=== PATIENT | male | born 1955 | race Caucasian/White ===

== ENCOUNTER 2021-11-08 12:17 | Emergency (ER) | payer OTHER, SELFPAY ==
[2021-11-08 12:18] VITALS: BP 126/77; PULSE 102; RESP 14; TEMP 35.7; O2SAT 97; BMI 26.9
--- NOTE | 2021-11-08 12:18 | ED.RN ---
PT NOT COOPERATIVE WITH ANSWERING QUESTIONS IN TRIAGE
--- NOTE | 2021-11-08 12:21 | ED.RN ---
PT RUDE TO FEMALE SCREENER AND THIS RN, VERY PLEASANT WITH MALE VOLUNTEER.
--- NOTE | 2021-11-08 12:57 | EX.ED.DYSGE1 ---
HPI History of Present Illness Chief Complaint: General Illness Informant: patient Onset/Context/Timing Onset: Days Context: Gradual Onset Timing: Intermittent Current Severity: Mild Maximum Severity: Mild Narrative Narrative: 66-year-old male history of multiple myeloma with metastases. He received his last chemotherapy about 3 weeks ago. He is now on a monthly regimen is due to receive chemotherapy again next week. States he had diarrhea intermittently for about a week. Thinks that was dark yesterday. Denies any gross blood. Denies any vomiting nor nausea. No fever. He also has a history of diabetes for which she is on Januvia. He denies any abdominal pain. States has been drinking fluids. Denies any dysuria. Sent in by his oncologist for a work-up. Including a CAT scan. [facility] Medical History (Updated 11/08/21 @ 15:[address] Pedro Altamirano MD) Hypertension Melanoma Home Medications NK 09/23/20 [History Last Taken Unknown] Allergy/AdvReac Type Severity Reaction Status Date / Time No Known Allergies Allergy Unverified 09/23/20 13:22 Social History Smoking Status: Never smoker ROS ROS ED ROS Narrative Diarrhea. Review of Systems ROS Unobtainable: Denies due to encephalopathy Constitutional Constitutional ED: Denies fever(s) Eyes Eyes: Denies change in vision ENT ENT ED: Denies ear pain Cardiovascular Cardiovascular: Denies chest pain Respiratory/Chest Respiratory/Chest: Denies dyspnea Gastrointestinal Gastrointestinal: Reports diarrhea; Denies abdominal pain, nausea or vomiting Genitourinary Genitourinary ED: Denies dysuria Musculoskeletal Musculoskeletal: Denies myalgias Integumentary Denies rash Psychiatric Psychiatric: Denies depression Endocrine Endocrinology: Denies polyuria Allergic/Immunologic Allergic/Immunologic ED: Denies urticaria EXAM Physical Exam Narrative Exam Narrative: 66-year-old male no acute distress. Vital signs are stable. He is afebrile. He does not look septic or toxic. H EENT exam unremarkable. Moist remembers. Neck nontender no lymphadenopathy. Lungs clear to auscultation bilaterally. Heart regular rate and rhythm rate about 95 no murmur. Abdomen soft nontender normal bowel sounds no peritoneal signs. No distention. No obstruction. Patient moving all 4 extremities. Calves are nontender without edema or cords. Neurologically is awake and alert. Moving all 4 extremities. Clinically patient looks well. He does not look dehydrated. Const Vital Signs: 11/08/21 12:18 11/08/21 13:13 11/08/21 14:20 Temperature 96.2 F L Temperature Source Temporal Pulse Rate 102 H 86 Respiratory Rate 14 22 H Respiratory Effort Normal Respiratory Pattern Normal Blood Pressure 126/77 H 128/64 H Blood Pressure Mean 93 85 Pulse Ox 97 98 Oxygen Delivery Method Room Air Room Air Positive well nourished and well developed; Negative for obese, cachectic, contractures or unkempt General Appearance ED: well developed and NAD; Negative for unkempt, cachectic, contractures, cyanotic, diaphoretic or pallor Nutritional Appearance: Negative for cachectic or obese HEENT Reports moist mucous membranes Negative for trauma or tenderness Eyes PERRL and EOMs intact bilaterally General Eye ED: Negative for pale conjunctiva or scleral icterus Neck no lymphadenopathy, supple and no JVD General: Negative for tenderness Chest Wall palpation of chest normal Resp normal respiratory effort and clear to auscultation bilaterally Effort and Inspection: Negative for pain with movement Auscultation: Negative for rales, rhonchi or wheezes Cardio regular rate, regular rhythm, S1 normal heart sound, S2 normal heart sound and no murmurs GI normal to inspection, nondistended, normoactive bowel sounds, non-tender, non-distended and no masses Inspection: Negative for abdominal distention Auscultation: normoactive bowel sounds Palpation: soft; Negative for tender, guarding or rebound tenderness present Back/Spine no CVA tenderness General Back: Negative for CVA tenderness Cervical Spine: Negative for cervical spine tenderness Thoracic Spine / Upper Back: Negative for thoracic spinal tenderness Extremity normal to inspection General Extremety ED: Negative for edema or tenderness General Extremity: Negative for edema Neuro oriented x3 Sensorium / Orientation: alert; Negative for orientation impaired, lethargic or stuporous Motor Exam: strength 5/5 throughout Psych mental status grossly normal Appearance: Negative for unkempt Attitude: No agitated Mood & Affect: Negative for depressed or tearful Skin no rashes or lesions noted and no wounds General Skin Exam: Negative for jaundice or pallor MDM MDM MDM Narrative Medical decision making narrative: 60-year-old male with multiple myeloma undergoing chemotherapy with diarrhea. Clinically looks well. Screening labs are being obtained. CAT scan be obtained per his oncologist request. He called them prior to the patient's arrival. C. difficile culture will be obtained if the patient has a bowel movement here. Repeat exam patient is doing well at 3:10 PM. I did speak to Dr. Ramses Herrera his oncologist. He will call patient and a prescription for prednisone. He will be given a dose of Solu-Medrol IV here. He will be discharged home. Dr. Herrera will follow him up as an outpatient. Lab Data Attestation: I reviewed the patient's lab results. Lab results narrative: CBC shows a white count of 7. H&H 12.9 and 38. Platelets 187. Electrolytes potassium of 3.3. Gap of 6 BUN of 21 creatinine 1.91. His baseline creatinine clean and creatinine is around 1.6 per his oncologist. Glucose 173. Liver enzymes unremarkable. CAT scan showed some mild rectal thickening. Also some mild colitis. Labs: Laboratory Results - last 24 hr 11/08/21 11/08/21 13:11 13:11 WBC 7.1 RBC 4.32 L Hgb 12.9 L Hct 38.3 L MCV 88.7 MCH 29.9 MCHC 33.7 RDW Std Deviation 42.1 RDW Coeff of Samuel 12.9 Plt Count 187 MPV 10.2 Immature Gran % (Auto) 2.000 H Neut % (Auto) 59.9 Lymph % (Auto) 21.4 [place]ath % (Auto) 13.2 H Eos % (Auto) 2.8 Baso % (Auto) 0.7 Absolute Neuts (auto) 4.2 Absolute Lymphs (auto) 1.51 Nucleated RBC % 0 Differential Comment Platelet Estimate ADEQUATE RBC Morphology NORM C+C Sodium 139 Potassium 3.3 L Chloride 102 Carbon Dioxide 31.0 Anion Gap 6 BUN 21 H Creatinine 1.91 H Estim Creat Clear Calc 35.57 Est GFR (MDRD) Af Amer 46 L Est GFR (MDRD) Non-Af 38 L BUN/Creatinine Ratio 11.0 Glucose 173 H Calcium 9.6 Total Bilirubin 0.80 AST 19 ALT 36 Alkaline Phosphatase 56 Total Protein 6.5 Albumin 2.7 L Globulin 3.8 Albumin/Globulin Ratio 0.7 L Radiography Diagnostic Testing: Clinical Impression(s) from Imaging Studies Abdomen/Pelvis CT 11/08/21 13:52 IMPRESSION: Asymmetrical thickening along the right lateral rectal wall with moderate amount of distal colonic fecal material. Thickening of the colon suggestive of colitis. Small cyst in the right lobe of the liver. Electronically Signed: Gerald Fuller MD at 14:15 EDT , Discharge Plan Triage Chief Complaint: General Illness ED Provider: Pedro Altamirano Dx/Rx/DC Orders Clinical Impression: Diarrhea, Colitis Instructions: ED Diarrhea, Unknown Cause Prescriptions: No Action NK RF: 0 Primary Care Provider: Care Physician,No Primary Referrals: Ramses Herrera, [STAFF PHYSICIAN] - As soon as possible Care Physician,No Primary [Primary Care Provider] - Activity Restrictions/Additional Instructions: Plenty of fluids and rest. Call and follow-up with Dr. Ramses Herrera. He is going to call you new prescription for steroids which can start tomorrow. We gave you an IV dose of steroids here prior to you being discharged. Dr. Herrera will get other follow-up set up for you as needed. Disposition Disposition: Home, Self Care
[2021-11-08] MEDS: 0.9% Normal Saline 1,000 ML 1000 ML IV (13:17)
[2021-11-08 13:29] LABS: Absolute Lymphocyte Count 1.51 X10^3/uL (0.83-4.51); Absolute Neutrophil Count 4.2 X10^3/uL (2.0-7.7); Basophil# 0.05 X10^3/uL; Basophil% 0.7 % (0-1); Eosinophils% 2.8 % (0-5); Hematocrit 38.3 % (40-54); Hemoglobin 12.9 g/dL (13.0-16.5); Lymphocyte # 1.51 X10^3/ul (0.83-4.51); Lymphocyte % 21.4 % (19-41); Mean Corp Hgb Conc 33.7 g/dL (32-36); Mean Corpuscular Hgb 29.9 pg (27.0-32.0); Mean Corpuscular Volume 88.7 fL (80-94); Mean Platelet Vol. 10.2 fl (6.2-12.0); Monocyte# 0.93 X10^3/uL; Monocyte% 13.2 % (0-10); NRBC Flagged by Analyzer 0 % (0-5); Neutrophil # 4.22 X10^3/uL (2.7-7.7); Neutrophil % 59.9 % (47-70); POSITIVE MORPHOLOGY YES; Platelet Count 187 K/mm3 (150-450); RBC Distribution Width CV 12.9 % (11.6-14.6); RBC Distribution Width SD 42.1 fl (35.1-43.9); Red Blood Count 4.32 M/mm3 (4.6-6.2); White Blood Count 7.1 K/mm3 (4.4-11.0)
[2021-11-08 13:34] LABS: Differential Indicated SCAN CRITERIA MET
[2021-11-08 13:45] LABS: ALB/GLOB Ratio 0.7 RATIO (0.9-2.4); AST(SGOT) 19 U/L (15-37); Alanine Aminotransfer ALT/SGPT 36 U/L (16-61); Albumin, Serum 2.7 g/dL (3.2-5.0); Alkaline Phosphatase 56 U/L (45-117); Anion Gap 6 (5-15); BUN 21 mg/dL (7-18); Calcium,Total 9.6 mg/dL (8.5-10.1); Chloride 102 mmol/L (98-107); Creatinine, Serum 1.91 mg/dL (0.70-1.30); EST Glomerular Filtration Rate 38 mL/min (>60); Est Glom Filt Rate - Afr Amer 46 mL/min (>60); Estimated Creatinine Clearance 35.57 ml/min; Globulin 3.8 g/dL (2.2-4.2); Glucose 173 mg/dL (74-106); Potassium 3.3 mmol/L (3.5-5.1); Protein, Total 6.5 g/dL (6.4-8.2); Sodium Level 139 mmol/L (136-145)
--- NOTE | 2021-11-08 13:52 | CT_ITS ---
STUDY: CT ABDOMEN AND PELVIS WITH CONTRAST REASON FOR EXAM: Male, 66 years old. Cancer with mets RADIATION DOSAGE (If Supplied By Facility): CTDIvol = ( 12.93 ) mGy, DLP = ( 801.28 ) mGycm TECHNIQUE: Transaxial images were obtained from the dome of the diaphragm to the symphysis pubis without oral contrast. IV 100mL Isovue-300 was administered. Sagittal and coronal images were reconstructed. Individualized dose optimization techniques were used for this CT. COMPARISON: None. FINDINGS: The visualized lung bases are unremarkable. The visualized portions of the heart are within normal limits. There is a 3.6 mm cyst in the region of the gallbladder fossa. The gallbladder is contracted. Normal spleen. Normal pancreas. Normal bilateral adrenal glands. Normal right kidney. Normal left kidney. There is a small hiatal hernia. Normal small intestine. Moderate amount of fecal material is seen in the distal colon. There is asymmetrical thickening of the wall of the rectum with diffuse thickening along the right lateral wall. There is evidence of circumferential thickening of the ascending colon, transverse colon and descending colon. Colitis should be removed. The appendix is visualized and appears normal. There is diffuse atherosclerotic calcification of the abdominal aorta and its major visceral branches, without a demonstrated aneurysm. Normal inferior vena cava. Normal retroperitoneum. Normal urinary bladder. Normal abdominal wall. There are diffuse degenerative changes of the visualized lumbar spine. CT/Abdomen/Pelvis W IV Cont ONLY IMPRESSION: Asymmetrical thickening along the right lateral rectal wall with moderate amount of distal colonic fecal material. Thickening of the colon suggestive of colitis. Small cyst in the right lobe of the liver. Electronically Signed: Gerald Fuller MD at 14:15 EDT ,
[2021-11-08 14:02] LABS: Platelet Estimate ADEQUATE (ADEQ); Red Cell Morphology NORM C+C NORMAL (NORM C&C)
[2021-11-08 14:20] VITALS: BP 128/64; PULSE 86; RESP 22; O2SAT 98
--- NOTE | 2021-11-08 14:23 | CM.ED ---
Addendum entered by Dominique Alejo 11/08/21 17:53: When BETTY met with patient to provide resources patient was rude and dismissive. He scoffed when this commercial loan underwriter offered resources and SW laid it on his bed as he did not take it. Dominique ALMANZAR Original Note: BETTY Note Referral Source: Case Find Referral Reason: No Primary Care Physician (PCP) SW reviewed chart and noted that patient has no PCP. SW provided patient with list of [facility] and [facility] Physician List for reference. No other issues or concerns voiced at this time. SW remains available for any additional needs. Plan: Provided patient with PCP information Dominique ALMANZAR
[2021-11-08] MEDS: MethylPREDNISolone 125 MG/2 ML Vial 60 MG IV (15:44)
[2021-11-08 15:46] VITALS: BP 119/61; PULSE 84; RESP 16
== END 2021-11-08 15:47 | disposition home or self-care (01) ==
PROVIDERS: Emergency Provider Emergency Medicine; Visit Provider Emergency Medicine
DX: K52.9 Noninfective gastroenteritis and colitis, unspecified (principal); C79.9 Secondary malignant neoplasm of unspecified site; C90.00 Multiple myeloma not having achieved remission; Z79.899 Other long term (current) drug therapy
CPT/HCPCS: 74177; 80053; 85025; 96361; 96374; 99283; J7030; Q9967; A4216

== ENCOUNTER 2022-09-17 10:12 | Emergency (ER) | payer MEDICARE, OTHER, SELFPAY ==
[2022-09-17 10:13] VITALS: BP 126/80; PULSE 101; RESP 14; TEMP 36.1; O2SAT 100; BMI 22.6
--- NOTE | 2022-09-17 10:47 | RAD_ITS ---
HISTORY: weakness. TECHNIQUE: XR Chest 2 Views. COMPARISON: None. FINDINGS: CARDIOMEDIASTINAL BORDERS: Cardiac silhouette within normal limits in size. Mediastinal contour unremarkable. LUNGS: Radiographically clear. 9 mm anterior chest wall nodule projected over the right midlung. PLEURA: No pleural effusion or pneumothorax seen. OSSEOUS STRUCTURES: Degenerative change and mild scoliosis. Old right rib fractures. RAD/Chest PA and Lateral IMPRESSION: No acute cardiopulmonary process identified. Small anterior chest wall nodule. Electronically Signed: Tabitha Jesus MD at 12:42 EST ,
--- NOTE | 2022-09-17 10:47 | EKG12_ITS ---
Test Reason : WEAKNESS Blood Pressure : / mmHG Vent. Rate : 078 BPM Atrial Rate : 078 BPM P-R Int : 146 ms QRS Dur : 124 ms QT Int : 414 ms P-R-T Axes : 039 024 030 degrees QTc Int : 471 ms Normal sinus rhythm Right bundle branch block Abnormal ECG Confirmed by GUICHO WHITEHEAD, HERNANDO ([id number]), videotape editor OSMANY ALVARADO ([id number]) on 09/19/2022 11:15:03 AM Referred By: Confirmed By:HERNANDO LINDO MD
--- NOTE | 2022-09-17 10:47 | CT_ITS ---
HISTORY: ataxia left, hx melanoma. TECHNIQUE: Multiple axial images were obtained of the head before and after the intravenous administration of 15 cc Isovue-370. A radiation dose optimization technique was used for this scan. 282 images. COMPARISON: None. FINDINGS: BRAIN PARENCHYMA: Multiple foci and zones of low attenuation in the bilateral cerebral white matter compatible with chronic small vessel ischemic gliosis. No enhancing mass. Old lacunar infarcts in the bilateral basal ganglia. No acute intra-axial hemorrhage identified. CSF SPACES: Mild generalized volume loss. No midline shift or other significant mass effect. No acute extra-axial hemorrhage seen. OTHER: Intact calvarium. Fluid in the bilateral mastoid air cells. Bilateral maxillary sinus mucous retention cysts. Unremarkable orbits. CT/Brain/Head W/WO Contrast IMPRESSION: No acute intracranial process or enhancing intracranial mass identified. Chronic involutional and white matter changes. Old basal ganglia lacunar infarcts. Electronically Signed: Tabitha Jesus MD at 12:37 EST ,
--- NOTE | 2022-09-17 10:50 | EDS_ITS ---
HPI History of Present Illness Chief Complaint: Weakness Informant: patient Onset/Context/Timing Onset: - (this past week) Context: Gradual Onset Timing: Continuous Narrative Narrative: Patient is a poor historian who presents for feeling weak and having a poor appetite, along with pain in both calves and thighs as well as tingling in his left hand. These latter symptoms are new and have been going on this past week and he states also he has been wobbly and off balance with walking without any dizziness, headache, or focal weakness. He has not fallen or injured himself. He has had no fevers or chills. When asked if he has a cough he states that he has not been coughing this past week suggesting that other times he is coughing. He states the poor appetite has been for 1-2 years since he initiated treatment for melanoma, he states he is in remission right now, he states he has seen his oncologist regarding his poor appetite, he was put on some medication that was supposed to help with his appetite, but it is not helping, he states he has had no conversations about a feeding tube. He states he has lost over 40 pounds. He does not think he is drinking fluids very well either, and he thinks maybe he is dehydrated. The pain in his calves and thighs is without walking/exertion, he states it is sore all of the time. He denies any swelling. No history of blood clots. [facility] Medical History Hypertension Melanoma Home Medications tramadol 50 mg tablet 50 mg PO Q6H PRN pain 3 days #12 tabs 09/17/22 [Rx Last Taken Unknown] Allergy/AdvReac Type Severity Reaction Status Date / Time No Known Allergies Allergy Verified 09/17/22 10:13 Social History Smoking Status: Never smoker ROS [facility] ED Constitutional Constitutional ED: Reports malaise and weakness; Denies chills or fever(s) Eyes Eyes: Denies change in vision or diplopia ENT ENT ED: Denies rhinorrhea or sore throat Cardiovascular Cardiovascular: Denies chest pain or palpitations Respiratory/Chest Respiratory/Chest: Denies cough or dyspnea Gastrointestinal Gastrointestinal: Denies abdominal pain, diarrhea, nausea or vomiting Genitourinary Genitourinary ED: Denies dysuria or hematuria Musculoskeletal Musculoskeletal: Reports as per HPI and extremity pain; Denies back pain or neck pain Integumentary Denies abscess or rash Neurologic Neurologic: Reports as per HPI, abnormal gait and paresthesias LUE (hand. no other areas of paresthesias.); Denies headache(s) or weakness Psychiatric Psychiatric: Denies anxiety or suicidal thoughts EXAM Physical Exam Const Vital Signs: 09/17/22 10:13 09/17/22 11:12 09/17/22 12:48 Temperature 97 F L Temperature Source Temporal Pulse Rate 101 H 86 Respiratory Rate 14 16 Respiratory Effort Normal Respiratory Pattern Normal Blood Pressure 126/80 H 156/88 H Blood Pressure Mean 95 110 Pulse Ox 100 99 Oxygen Delivery Method Room Air Room Air 09/17/22 13:16 Temperature Temperature Source Pulse Rate 91 Respiratory Rate 23 H Respiratory Effort Respiratory Pattern Blood Pressure 157/92 H Blood Pressure Mean 113 Pulse Ox 99 Oxygen Delivery Method Room Air Positive well nourished and well developed General Appearance ED: well developed and NAD HEENT Reports moist mucous membranes normocephalic and atraumatic Eyes PERRL and EOMs intact bilaterally Neck full ROM and supple Resp normal respiratory effort and clear to auscultation bilaterally Cardio regular rate, regular rhythm and no murmurs GI non-tender and non-distended Auscultation: normoactive bowel sounds Palpation: soft Back/Spine no CVA tenderness General Back: other FROM Extremity normal to inspection General Extremety ED: Negative for edema, pulses abnormal or tenderness General Extremity: Negative for edema or pulses abnormal Neuro oriented x3 and CN's II-XII intact bilaterally Neuro Narrative: Subjective decreased sensation left hand, but sensation grossly intact there, and normal everywhere else. He has ataxia with [id number] on the left although his strength is normal. He has mild ataxia of the left leg with [id number] but the strength is normal. Right upper and lower extremities [id number]-[id number] and [id number] normal. Speech normal. Sensorium / Orientation: awake and alert Motor Exam: strength 5/5 throughout Psych mental status grossly normal Skin no rashes or lesions noted and no wounds NIHSS NIHSS Initial: 1a Level of Consciousness: 0 1b LOC Questions (Score 2 if aphasic/stupor): 0 1c LOC Commands (Only score 1st attempt): 0 2 Best Gaze (If aphasic, use reflexive mvmts.): 0 3 Visual: 0 4 Facial Palsy: 0 5 Motor Arm Right (UN = amputation/fusion): 0 5 Motor Arm Left: 0 6 Motor Leg Right: 0 6 Motor Leg Left: 0 7 Limb ataxia (Only + if out of proportion): 2 8 Sensory (Aphasia/stupor=0 or 1, coma=2): 1 9 Best Language: 0 10 Dysarthria (mute, coma=2, intubated=UN): 0 11 Extinction and Inattention (only scored if +): 0 Total Score: 3 MDM MDM MDM Narrative Medical decision making narrative: I obtain basic labs in addition to to a CT of the head with and without contrast, I reviewed the images and see nothing acute or emergent. Radiology in agreement. My interpretation of the CT agrees with that of the radiologist. He does have some old lacunar infarcts unknown if those are related to any of this but they are in the basal ganglia and less likely to be causing ataxia in my judgment. His labs show mild renal insufficiency that is better than the previous reading that we had, he is hyperglycemic. He does not have diabetes that he knows of. I am assuming this is a fasting glucose, I confirmed that with him, he had an ice cream sandwich at 2 AM but nothing to eat or drink since then, so this blood work was obtained more than 8 hours after that. He will need to follow-up with his medical doctor for this but I see no emergent cause of his ataxia or indication for admission at this time. We did obtain a urinalysis, it is normal and shows no evidence of glycosuria or dehydration. He was given a small dose of Toradol for the achy pains in his legs which seem muscular. His cardiac work-up is unremarkable. Close a patient follow-up advrafael sed. After all of this, at discharge, the patient states that he is more interested in getting pain medication for his legs. He told the nurse that he basically thought that he was here to just get a shot of pain medication for his legs and then he could go home, he certainly discussed none of this with me. I will prescribe him some tramadol. He had stated earlier that he wanted some Tylenol because he was taking that at home, I give him an injection of Toradol so that if he needed Tylenol when he got home he could still take it. Lab Data Attestation: I reviewed the patient's lab results. Labs: Laboratory Results - last 24 hr 09/17/22 09/17/22 09/17/22 11:17 11:17 13:25 WBC 8.8 RBC 4.49 L Hgb 13.6 Hct 39.5 L MCV 88.0 MCH 30.3 MCHC 34.4 RDW Std Deviation 46.4 H RDW Coeff of Samuel 14.4 Plt Count 163 MPV 10.5 Immature Gran % (Auto) 0.800 Neut % (Auto) 71.7 H Lymph % (Auto) 16.7 L [place] % (Auto) 9.0 Eos % (Auto) 1.3 Baso % (Auto) 0.5 Absolute Neuts (auto) 6.3 Absolute Lymphs (auto) 1.47 Nucleated RBC % 0 Sodium 141 Potassium 3.9 Chloride 105 Carbon Dioxide 29.0 Anion Gap 7 BUN 18 Creatinine 1.38 H Estim Creat Clear Calc 48.86 Est GFR (MDRD) Af Amer 66 Est GFR (MDRD) Non-Af 55 L BUN/Creatinine Ratio 13.0 Glucose 211 H Calcium 9.1 Troponin I High Sens 6 Urine Color Yellow Urine Clarity Clear Urine pH 6.5 Ur Specific [place] 1.010 Urine Protein 15 H Urine Glucose (UA) Normal Urine Ketones 5 H Urine Occult Blood Negative Urine Nitrite Negative Urine Bilirubin Negative Urine Urobilinogen Normal Ur Leukocyte Esterase Negative Urine RBC 0 SEEN Urine WBC 0 SEEN Ur Squamous Epith Cells 0 SEEN Urine Bacteria 0 SEEN Urine Mucus 0 SEEN Radiography Diagnostic Testing: Clinical Impression(s) from Imaging Studies Brain CT 09/17/22 10:47 IMPRESSION: No acute intracranial process or enhancing intracranial mass identified. Chronic involutional and white matter changes. Old basal ganglia lacunar infarcts. Electronically Signed: Tabitha Jesus MD at 12:37 EST , Chest X-Ray 09/17/22 10:47 IMPRESSION: No acute cardiopulmonary process identified. Small anterior chest wall nodule. Electronically Signed: Tabitha Jesus MD at 12:42 EST , Rhythm Strip Rhythm Strip: Sinus Rhythm Rate: 75 Ectopy: None EKG Initial EKG: Attestation: I personally reviewed and interpreted this EKG as follows: Interpretation: Sinus Rhythm, No Acute Injury Pattern and RBBB Prior: No Prior Discharge Plan Triage Chief Complaint: Weakness ED Provider: Juan Jain Dx/Rx/DC Orders Clinical Impression: Generalized weakness, Decreased appetite, Fasting hyperglycemia, Bilateral leg pain Instructions: ED Weakness (Uncertain Cause), ED Hyperglycemia New Susp Diabetes Prescriptions: New tramadol 50 MG tablet 50 mg PO Q6H PRN (Reason: pain) 3 Days Qty: 12 0RF Primary Care Provider: Eleazar Siddiqi Referrals: Eleazar Siddiqi, PA [Primary Care Provider] - As soon as possible Disposition Disposition: Home, Self Care Stroke Documentation Questions Stroke Team Activated: No (due to timing of sx mult days) Was Patient considered for Endovascular Intervention?: No-CTA not indicated
--- NOTE | 2022-09-17 11:13 | NURSING ---
NO OLD EKGS
[2022-09-17 11:28] LABS: Absolute Lymphocyte Count 1.47 X10^3/uL (0.83-4.51); Absolute Neutrophil Count 6.3 X10^3/uL (2.0-7.7); Basophil# 0.04 X10^3/uL; Basophil% 0.5 % (0-1); Eosinophil# 0.11 X10^3/uL; Eosinophils% 1.3 % (0-5); Hematocrit 39.5 % (40-54); Hemoglobin 13.6 g/dL (13.0-16.5); Lymphocyte # 1.47 X10^3/ul (0.83-4.51); Lymphocyte % 16.7 % (19-41); Mean Corp Hgb Conc 34.4 g/dL (32-36); Mean Corpuscular Hgb 30.3 pg (27.0-32.0); Mean Platelet Vol. 10.5 fl (6.2-12.0); Monocyte# 0.79 X10^3/uL; NRBC Flagged by Analyzer 0 % (0-5); Neutrophil # 6.32 X10^3/uL (2.7-7.7); Neutrophil % 71.7 % (47-70); Platelet Count 163 K/mm3 (150-450); RBC Distribution Width CV 14.4 % (11.6-14.6); RBC Distribution Width SD 46.4 fl (35.1-43.9); Red Blood Count 4.49 M/mm3 (4.6-6.2); White Blood Count 8.8 K/mm3 (4.4-11.0)
[2022-09-17 11:41] LABS: Anion Gap 7 (5-15); BUN 18 mg/dL (7-18); Calcium,Total 9.1 mg/dL (8.5-10.1); Chloride 105 mmol/L (98-107); Creatinine, Serum 1.38 mg/dL (0.70-1.30); EST Glomerular Filtration Rate 55 mL/min (>60); Est Glom Filt Rate - Afr Amer 66 mL/min (>60); Estimated Creatinine Clearance 48.86 ml/min; Glucose 211 mg/dL (74-106); Potassium 3.9 mmol/L (3.5-5.1); Sodium Level 141 mmol/L (136-145); Troponin-I HS 6 pg/mL (3.0-78.0)
[2022-09-17] MEDS: 0.9% Normal Saline 1,000 ML 250 ML IV (11:44)
[2022-09-17 12:48] VITALS: BP 156/88; PULSE 86; RESP 16; O2SAT 99
[2022-09-17] MEDS: Ketorolac 15 MG/ML Vial IV (13:14)
[2022-09-17 13:16] VITALS: BP 157/92; PULSE 91; RESP 23; O2SAT 99
[2022-09-17 13:32] LABS: Bacteria 0 SEEN /hpf (None Seen); Mucous, Urine 0 SEEN /hpf (<or=2+); Red Blood Cells-Urine 0 SEEN /hpf (0-5); Squamous Epithelial Cells - UA 0 SEEN /hpf (0-5); White Blood Cells 0 SEEN /hpf (0-5)
[2022-09-17 13:34] LABS: Color, Urine Yellow (Yellow); Glucose, Dipstick Normal (Normal); Ketone-Dipstick 5 mg/dl (Negative); Leukocyte Esterase-Dipstick Negative /ul (Negative); Nitrite-Dipstick Negative (Negative); Occult Blood-Urine Negative /ul (Negative); Protein-Dipstick 15 mg/dl (Negative); Urine Bilirubin Dipstick Negative (Negative); Urine Clarity Clear (Clear); Urine Urobilinogen Normal (Normal); Urine pH 6.5 (5.0 - 8.0)
[2022-09-17 14:34] VITALS: BP 154/84; PULSE 82; RESP 18; O2SAT 96
== END 2022-09-17 14:38 | disposition home or self-care (01) ==
PROVIDERS: Emergency Provider Emergency Medicine; PCP Physician Assistant; Visit Provider Emergency Medicine
DX: R53.1 Weakness (principal); I10 Essential (primary) hypertension; N28.9 Disorder of kidney and ureter, unspecified; M79.661 Pain in right lower leg; M79.662 Pain in left lower leg; R20.2 Paresthesia of skin; Z20.822 Contact with and (suspected) exposure to COVID-19
CPT/HCPCS: 70470; 71046; 80048; 81001; 84484; 85025; 87428; 93005; 96361; 96374; 99285; J7030; Q9967; A4216

== ENCOUNTER 2023-11-20 13:50 | Emergency (ER) | payer MEDICARE, OTHER, SELFPAY ==
[2023-11-20 13:50] VITALS: BP 133/74; PULSE 103; RESP 19; TEMP 36.6; O2SAT 99; BMI 22.8
--- NOTE | 2023-11-20 14:18 | EX.ED.GUMALE ---
HPI History of Present Illness Chief Complaint: Complaint Detail of Chief Complaint: Gross hematuria today. Informant: patient and spouse/S.O. Pain Onset: Today Context: Gradual Onset Current Severity: Mild Maximum Severity: Mild Narrative Narrative: 68-year-old male history of I believe metastatic melanoma for which she sees Dr. Ramses Herrera and [facility]. States he is having trouble emptying his bladder and today had gross hematuria. Denies any dysuria. No prior prostate or bladder surgeries. He is not on any blood thinners. Prior similar symptoms: No Recent Illness/Hospitalization: No PFSH PFSH Medical History Hypertension Melanoma Home Medications tramadol 50 mg tablet 50 mg PO Q6H PRN pain 3 days #12 tabs 09/17/22 [Rx Last Taken Unknown] ciprofloxacin HCl 500 mg tablet (Cipro) 500 mg PO BID 7 days #14 tabs 11/20/23 [Rx Last Taken Unknown] Allergy/AdvReac Type Severity Reaction Status Date / Time No Known Allergies Allergy Verified 09/17/22 10:13 Social History Smoking Status: Never smoker ROS ROS ED ROS Narrative Hematuria. [place] bladder. Review of Systems ROS Unobtainable: Denies due to encephalopathy Constitutional Constitutional ED: Denies chills or fever(s) Eyes Eyes: Denies blurry vision ENT ENT ED: Denies ear pain Cardiovascular Cardiovascular: Denies chest pain Respiratory/Chest Respiratory/Chest: Denies cough or dyspnea Gastrointestinal Gastrointestinal: Denies abdominal pain, constipation, diarrhea, melena, nausea or vomiting Genitourinary Genitourinary ED: Reports hematuria; Denies dysuria Musculoskeletal Musculoskeletal: Denies arthralgias or back pain Integumentary Denies rash Neurologic Neurologic: Denies headache(s) Psychiatric Psychiatric: Denies anxiety, depression or suicidal ideation Endocrine Endocrinology: Denies polydipsia, polyphagia or polyuria Hematologic/Lymphatic Hematologic/Lymphatic: Denies easy bleeding, easy bruising or lymphadenopathy Allergic/Immunologic Allergic/Immunologic ED: Denies mouth swelling or tongue swelling EXAM Physical Exam Narrative Exam Narrative: Well-appearing 16-year-old male. Vital signs stable afebrile. Pulse ox 9 9% on room air no signs hypoxia. H EENT exam unremarkable. Moist weeks membranes. Neck nontender. Lungs clear to auscultation bilaterally. Heart regular rhythm rate about 100 no murmur. Abdomen is soft, nontender, nondistended normal bowel sounds no peritoneal signs. I do not feel distended bladder. Moving all 4 extremities. Nontender no edema. He does have lesions on his skin which may be metastatic melanoma. Neurologically is awake and alert with no focal motor deficits. Const Vital Signs: 11/20/23 13:50 11/20/23 17:50 Temperature 97.8 F 98.2 F Temperature Source Temporal Oral Pulse Rate 103 H 68 Respiratory Rate 19 H 16 Blood Pressure 133/74 H 142/86 H Blood Pressure Mean 93 104 Pulse Ox 99 97 Oxygen Delivery Method Room Air Room Air Positive well nourished and well developed; Negative for obese, cachectic, contractures or unkempt General Appearance ED: well developed and NAD; Negative for unkempt, cachectic, contractures or pallor Nutritional Appearance: Negative for cachectic or obese HEENT Reports moist mucous membranes; Denies dry mucous membranes normocephalic and atraumatic; Negative for trauma or tenderness Mouth ED: No dry mucous membranes Mouth: No dry mucous membranes Eyes PERRL and EOMs intact bilaterally General Eye ED: Negative for pale conjunctiva or scleral icterus Neck no lymphadenopathy, supple and no JVD General: Negative for tenderness Resp normal respiratory effort and clear to auscultation bilaterally Effort and Inspection: Negative for retractions Auscultation: Negative for rales, rhonchi, wheezes or diminished lung sounds Cardio regular rate, regular rhythm, S1 normal heart sound, S2 normal heart sound and no murmurs Rate: Negative for bradycardia or tachycardic Rhythm: Negative for abnormal rhythm Heart Sounds: Negative for other GI non-tender, non-distended and no masses Inspection: Negative for abdominal distention Auscultation: normoactive bowel sounds Palpation: soft; Negative for tender or guarding no CVA tenderness Bladder / Kidney Exam: No CVA tenderness Groin / Perineum Exam: Negative for edema or lesions Back/Spine no CVA tenderness General Back: Negative for CVA tenderness Cervical Spine: Negative for cervical spine tenderness Thoracic Spine / Upper Back: Negative for thoracic spinal tenderness Lumbar Spine / Lower Back: Negative for lumbar spinal tenderness Extremity Negative for normal to inspection Extremity Narrative: Skin lesions on his left arm and left leg may be metastatic melanoma. General Extremety ED: Negative for edema or pulses abnormal General Extremity: Negative for edema or pulses abnormal Neuro oriented x3, CN's II-XII intact bilaterally, moves all extremities and no focal motor deficits Sensorium / Orientation: alert, oriented to person, oriented to place and oriented to time; Negative for orientation impaired, confused, lethargic or stuporous Motor Exam: strength 5/5 throughout Psych mental status grossly normal Appearance: Negative for unkempt Attitude: No agitated Mood & Affect: Negative for depressed, anxious or tearful Thought Process: normal thought process Skin Skin Narrative: Skin lesions. General Skin Exam: Negative for jaundice or pallor Lesions: No no lesions Rashes: no rashes Trauma: Negative for abrasion or laceration MDM MDM MDM Narrative Medical decision making narrative: 68-year-old male complaining of hematuria today and trouble urinating recently physical he is emptying his bladder. No prior history of bladder or prostate surgery. Screening labs to be obtained this may be gross hematuria from bladder lesions could also be secondary to infection. UA, labs and bladder scan will be obtained. Patient's had this before. He is on no blood thinners and currently on no meds. He may or may not have an infection. There is white cells but no nitrates or bacteria. Culture was sent. Will be started on Cipro 500 twice daily for 1 week. First dose given here. He has a urologist he sees the [facility] he has appointment to see them on Monday. He knows if he is passing large clots or unable to urinate he needs to return to have the Ramírez catheter placed to have this washed out. He does not want that at this time and does not really need it at this time. History & Record Review Discussion w/independent historian: Patient Additional record(s) reviewed:: Prior inpatient record, Prior outpatient record, Prior ED visit and Prior labs Lab Data Attestation: I reviewed the patient's lab results. Lab results narrative: CBC is a white count of 5. H&H of 13.1 and 40. Platelets 172. These were all consistent with his baseline. Electrolytes show gap of 5. BUN of 23 creatinine 1.37. Glucose 178. Again consistent with his baseline and better. Bladder scan was around 144. Patient is able to urinate. He is not passing large clots just blood-tinged urine. He does not want a Ramírez catheter. Labs: Laboratory Results - last 24 hr 11/20/23 11/20/23 14:30 16:20 WBC 5.6 RBC 4.55 L Hgb 13.1 Hct 40.5 MCV 89.0 MCH 28.8 MCHC 32.3 RDW Std Deviation 41.8 RDW Coeff of Samuel 12.7 Plt Count 172 MPV 11.4 Immature Gran % (Auto) 0.400 Neut % (Auto) 49.5 Lymph % (Auto) 36.8 [place] % (Auto) 10.6 H Eos % (Auto) 1.8 Baso % (Auto) 0.9 Absolute Neuts (auto) 2.8 Absolute Lymphs (auto) 2.04 Nucleated RBC % 0 Sodium 139 Potassium 4.1 Chloride 104 Carbon Dioxide 30.0 Anion Gap 5 BUN 23 H Creatinine 1.37 H Estim Creat Clear Calc 48.25 Est GFR (MDRD) Af Amer 66 Est GFR (MDRD) Non-Af 55 L BUN/Creatinine Ratio 16.8 Glucose 178 H Calcium 9.4 Urine Color SEE COMMENT BELOW Urine Clarity Sl Cldy Urine pH 6.0 Ur Specific [place] 1.015 Urine Protein 100 H Urine Glucose (UA) Normal Urine Ketones Negative Urine Occult Blood 250 H Urine Nitrite Negative Urine Bilirubin Negative Urine Urobilinogen Normal Ur Leukocyte Esterase 25 H Urine RBC 25-50 SEEN Urine WBC 5-10 SEEN Ur Squamous Epith Cells 0-5 SEEN Urine Bacteria 0 SEEN Urine Mucus 0 SEEN Discharge Plan Triage Chief Complaint: Complaint ED Provider: Pedro Altamirano Dx/Rx/DC Orders Clinical Impression: Gross hematuria, Hx of melanoma of skin Instructions: ED Hematuria Prescriptions: New ciprofloxacin HCl [Cipro] 500 mg tablet 500 mg PO BID 7 Days Qty: 14 0RF No Action tramadol 50 MG tablet 50 mg PO Q6H PRN (Reason: pain) 3 Days Qty: 12 0RF Primary Care Provider: Ramses Herrera Referrals: Eleazar Siddiqi PA [Non-Staff] - Activity Restrictions/Additional Instructions: Plenty of fluids to help you keep washing out your bladder. If you start passing big blood clots or you are unable to urinate you need to return to have a Ramírez catheter placed and have this washed out. Follow-up with your [facility] urologist with your scheduled appointment on Monday. We will start you on antibiotics Cipro it is questionable at this time if you have a urinary tract infection or not. I sent a urine culture. The [facility] can check those results and decide if they want to stop antibiotics or continue it. Or change antibiotic altogether. Disposition Disposition: Home, Self Care
[2023-11-20 14:40] LABS: Absolute Lymphocyte Count 2.04 X10^3/uL (0.83-4.51); Absolute Neutrophil Count 2.8 X10^3/uL (2.0-7.7); Basophil# 0.05 X10^3/uL; Basophil% 0.9 % (0-1); Eosinophils% 1.8 % (0-5); Hematocrit 40.5 % (40-54); Hemoglobin 13.1 g/dL (13.0-16.5); Lymphocyte # 2.04 X10^3/ul (0.83-4.51); Lymphocyte % 36.8 % (19-41); Mean Corp Hgb Conc 32.3 g/dL (32-36); Mean Corpuscular Hgb 28.8 pg (27.0-32.0); Mean Platelet Vol. 11.4 fl (6.2-12.0); Monocyte# 0.59 X10^3/uL; Monocyte% 10.6 % (0-10); NRBC Flagged by Analyzer 0 % (0-5); Neutrophil # 2.75 X10^3/uL (2.7-7.7); Neutrophil % 49.5 % (47-70); Platelet Count 172 K/mm3 (150-450); RBC Distribution Width CV 12.7 % (11.6-14.6); RBC Distribution Width SD 41.8 fl (35.1-43.9); Red Blood Count 4.55 M/mm3 (4.6-6.2); White Blood Count 5.6 K/mm3 (4.4-11.0)
[2023-11-20 14:47] LABS: Anion Gap 5 (5-15); BUN 23 mg/dL (7-18); BUN/Creat Ratio 16.8 RATIO (10-20); Calcium,Total 9.4 mg/dL (8.5-10.1); Chloride 104 mmol/L (98-107); Creatinine, Serum 1.37 mg/dL (0.70-1.30); EST Glomerular Filtration Rate 55 mL/min (>60); Est Glom Filt Rate - Afr Amer 66 mL/min (>60); Estimated Creatinine Clearance 48.25 ml/min; Glucose 178 mg/dL (74-106); Potassium 4.1 mmol/L (3.5-5.1); Sodium Level 139 mmol/L (136-145)
[2023-11-20 16:23] LABS: Bacteria 0 SEEN /hpf (None Seen); Mucous, Urine 0 SEEN /hpf (<or=2+)
[2023-11-20 16:24] LABS: Glucose, Dipstick Normal (Normal); Ketone-Dipstick Negative (Negative); Leukocyte Esterase-Dipstick 25 /ul (Negative); Nitrite-Dipstick Negative (Negative); Occult Blood-Urine 250 /ul (Negative); Protein-Dipstick 100 mg/dl (Negative); Specific Gravity, Urine 1.015 (1.002-1.030); Urine Bilirubin Dipstick Negative (Negative); Urine Urobilinogen Normal (Normal)
[2023-11-20 16:26] LABS: Color, Urine SEE COMMENT BELOW (Yellow)
[2023-11-20 17:10] LABS: Red Blood Cells-Urine 25-50 SEEN /hpf (0-5); Squamous Epithelial Cells - UA 0-5 SEEN /hpf (0-5); Urine Clarity Sl Cldy (Clear); White Blood Cells 5-10 SEEN /hpf (0-5)
[2023-11-20 17:50] VITALS: BP 142/86; PULSE 68; RESP 16; TEMP 36.8; O2SAT 97
[2023-11-20] MEDS: Ciprofloxacin 500 MG Tablet PO (18:59)
[2023-11-20 19:00] VITALS: BP 142/86; PULSE 68; RESP 16; TEMP 36.8; O2SAT 97
[2023-11-20 19:04] VITALS: BP 142/86; PULSE 68; RESP 16; TEMP 36.8; O2SAT 97
== END 2023-11-20 19:06 | disposition home or self-care (01) ==
PROVIDERS: Emergency Provider Emergency Medicine; PCP Internal Medicine Hematology & Oncology; Visit Provider Emergency Medicine
DX: R31.0 Gross hematuria (principal); I10 Essential (primary) hypertension; Z85.820 Personal history of malignant melanoma of skin
CPT/HCPCS: 80048; 81001; 85025; 87086; 99283

== ENCOUNTER 2024-09-22 12:02 | Inpatient (IN) | payer MEDICARE, SELFPAY ==
[2024-09-22] VITALS (13 sets, daily range): BP systolic 107–151; BP diastolic 65–99; PULSE 67–103; RESP 12–22; TEMP 36.5–37.3; O2SAT 92–100; BMI 22.6; BMI 23.0
--- NOTE | 2024-09-22 12:13 | EX.ED.DYSGE1 ---
HPI History of Present Illness Chief Complaint: General Illness [facility] Medical History (Updated 09/22/24 @ 12:04 by Papi Carrillo) HTN (hypertension) Melanoma Home Medications ?Medication ?Instructions ?Recorded ?Last Taken ?Type amlodipine 5 mg tablet 5 mg PO DAILY 09/22/24 Unknown History trametinib 0.5 mg tablet (Mekinist) 2 mg PO DAILY 09/22/24 Unknown History Allergy/AdvReac Type Severity Reaction Status Date / Time No Known Allergies Allergy Verified 09/22/24 12:05 Social History Smoking Status: Unknown if ever smoked EXAM Physical Exam Const Vital Signs: 09/22/24 12:06 09/22/24 12:06 09/22/24 12:33 Temperature 98.3 F 98.3 F Temperature Source Oral Temporal Pulse Rate 101 H 103 H Respiratory Rate 18 19 H Respiratory Effort Normal Respiratory Pattern Normal Blood Pressure 151/97 H 130/82 H Blood Pressure Mean 115 98 Pulse Ox 100 92 Oxygen Delivery Method Room Air 09/22/24 13:39 09/22/24 15:00 09/22/24 15:05 Temperature 99.2 F H 99.1 F 99.2 F H Temperature Source Oral Oral Pulse Rate 98 99 93 Respiratory Rate 22 H 18 18 Respiratory Effort Respiratory Pattern Blood Pressure 143/85 H 125/68 H 135/91 H Blood Pressure Mean 104 87 105 Pulse Ox 98 94 99 Oxygen Delivery Method Room Air Room Air MDM MDM MDM Narrative Medical decision making narrative: HISTORY OF PRESENT ILLNESS: 68-year-old male history of metastatic melanoma, hypertension presents with concern for change in mental status. The patient is a poor historian. He does not provide lab history. Thinks he is in [place]. He initially endorses to me that he does not want to undergo further anticancer treatment. His arrives after his initial workup was started and she clarifies a history. for the last 2 months has been on experimental chemotherapeutic agent called Trametinib. [facility] not really [facility] him. She states he has chronic mental status issues including chronic balance issues, chronic loose nations. REVIEW OF SYSTEMS: Unable to obtain a reliable review of system secondary to patient's altered mental status PHYSICAL EXAM: Nursing triage notes reviewed, Vital signs reviewed Constitutional: please see mdm HENT: MMM Eyes: Pupils equal round and reactive to light, Extraocular muscles intact Neck: No stridor, no JVD, full neck ROM Lungs: Clear to auscultation, No wheezing or rales. No increased work of breathing, no conversational dyspnea, no accessory muscle use, no nasal flaring. No respiratory distress noted Heart: Regular rate and rhythm, No murmurs, No rubs and No gallops, 2+ distal pulses (radial, femoral, posterior tibial) in all extremities Abdomen: Soft, there is no tenderness, rigidity, rebound or guarding, no obvious peritoneal signs, no palpable pulsatile abdominal masses, no auscultated abdominal bruit : Rash about the testicles, the perineum, over the buttocks. There is no crepitus or bullae. No sign of Freddy's gangrene Extremities: Trace edema Neuro: Alert, oriented to person but not place or time (daughter lives in [place], that is 1955), moves all 4 extremities, sensation all 4 extremities, no obvious cranial nerve deficits Skin: Nonspecific lesions throughout the upper and lower extremities MEDICAL DECISION MAKING: Chief Complaint: Change in mental status External records reviewed: Reviewed prior oncology records. Notes patient follows current with Dr. Gan Factors affecting care: per report melanoma and hypertension Social determinants of health: none History obtained from others: EMS, patient's Consults: Internal Medicine (Dr. Morillo), [facility] (Dr. Gardner) MDM Narrative: Patient was initially hemodynamically stable, afebrile and nontoxic-appearing. Exam without lateralizing focal deficits. Diffusely encephalopathic. I considered the following differential diagnosis: ICH, mass, infectious or metabolic encephalopathy I obtained a broad lab and imaging workup to further elucidate etiology of the patient's complaints. Initially treated the patient 1 L normal saline. ALL IMAGES (IF OBTAINED) HAVE BEEN PERSONALLY REVIEWED AND INTERPRETED BY MYSELF. EKG with sinus tachycardia, normal axis, normal intervals, no STEMI CBC with leukocytosis suggestive of systemic inflammation, no anemia or thrombocytopenia BMP without significant Asha normalities, noted CKD, Lactate elevated consistent with endorgan hypoperfusion LFTs with hyperlipidemia and slight elevation liver enzymes Lipase is wnl indicating no pancreatic inflammation. UA consistent with UTI Blood and urine cultures were sent Initial troponin elevated consistent with myocardial ischemia patient denies chest pain this is likely a type II demand ischemia from CKD and sepsis X-ray of the patient's chest was read and reviewed personally by myself showed no evidence of obvious pneumonia X-ray of the patient's right hip was read reviewed person myself show evidence obvious bony fracture dislocation. CT scan the patient's head was negative for ICH or mass CT scan of the cervical spine was negative for fracture or dislocation Given initial tachycardia, tachypnea, significant leukocytosis patient was start empirically on broad-spectrum antibiotics after blood and urine cultures were obtained. He is given a total of 2 L normal saline. Tylenol for concern for developing fever with a temperature it is uptrending from 90.3-9 9.2. Imaging studies did not reveal any evidence of trauma. Did not reveal any evidence of new intracranial lesions. I called the hospitalist Dr. Morillo to admit the patient. After Dr. Morillo evaluated the patient and family she was concerned given the patient's history of metastatic melanoma and change in mental status that he may need a higher level of care specifically because he is on a experimental anticancer agent as noted above that he would need higher level of care and specialty evaluation specific with oncology potential neurosurgery. After further discussion with the patient's he has had symptoms with alterations in mental status, ataxia and metastatic melanoma for years. This is not a new diagnosis. At 3:50 PM in lieu of the hospitalist concern I did attempt [facility] Discussed the case with Dr. Gardner from clinic at [facility] at approximately 4:[address] Gardner accepts the patient in transfer. Currently patient is awaiting a bed at [facility]. Currently boarding in the ED. Will sign out to p.m. physician pending transfer. The patient remains in ED for 6 hours to be appropriate for admission here to await transfer. The patient and/or family, caregivers express understanding. The patient and/or family, caregivers agrees with the plan. Shared decision making: I will have a discussion with the patient and or visitors regarding risk/benefits of further testing or admission. They will be made aware of of the risk/benefits inherent in this decision they will be given the opportunity to voice understanding. Total critical care time today provided was at least 0 minutes. This excludes separately billable procedures. Critical care time (if documented) is secondary to the patient having high probability of clinically significant/life threatening deterioration in the patient's condition which required my urgent intervention. Impression: 1. Sepsis 2. UTI 3. CKD 4. Leukocytosis 5. History of metastatic melanoma 6. Tinea cruris 7. Rib fracture Dispo: Transfer to [facility] This note was generated with [employer] (1BOG) dictation software. It may contain incorrect words, spelling, and punctuation that were not noted in review of the chart prior to signing. Lab Data Labs: Laboratory Results - last 24 hr 09/22/24 09/22/24 12:22 14:20 WBC 24.2 H RBC 4.42 L Hgb 13.0 Hct 39.4 L MCV 89.1 MCH 29.4 MCHC 33.0 RDW Std Deviation 48.5 H RDW Coeff of Samuel 14.9 H Plt Count 156 MPV 11.2 Immature Gran % (Auto) 4.300 H Neut % (Auto) 81.9 H Lymph % (Auto) 6.8 L [place] % (Auto) 6.3 Eos % (Auto) 0.5 Baso % (Auto) 0.2 Absolute Neuts (auto) 19.8 H Absolute Lymphs (auto) 1.64 Nucleated RBC % 0 Differential Comment Diff Path Review May foll Platelet Estimate ADEQUATE Anisocytosis 1+ Tear Drop Cells RARE Ovalocytes 1+ Crenated Cell 1+ Acanthocytes (Spur) RARE Schistocytes RARE Sodium 138 Potassium 4.1 Chloride 101 Carbon Dioxide 26.0 Anion Gap 10 BUN 32 H Creatinine 1.63 H Estim Creat Clear Calc 39.02 Est GFR (MDRD) Af Amer 54 L Est GFR (MDRD) Non-Af 45 L BUN/Creatinine Ratio 19.6 Glucose 139 H Lactic Acid 2.6 H* Calcium 8.3 L Total Bilirubin 1.20 H AST 287 H ALT 89 H Alkaline Phosphatase 130 H Troponin I High Sens 74 Total Protein 6.5 Albumin 2.3 L Globulin 4.2 Albumin/Globulin Ratio 0.5 L Lipase 41 L Urine Color Yellow Urine Clarity Cloudy Urine pH 6.0 Ur Specific [place] 1.020 Urine Protein 100 H Urine Glucose (UA) Normal Urine Ketones 50 H Urine Occult Blood 250 H Urine Nitrite Positive H Urine Bilirubin Negative Urine Urobilinogen 1 H Ur Leukocyte Esterase 500 H Urine RBC 25-50 SEEN Urine WBC 25-50 SEEN Ur Squamous Epith Cells 5-10 SEEN Ur Transition Epith Cell 0-5 SEEN Ur Renal Epithelial Cell 5-10 SEEN Amorphous Sediment 3+ Urine Bacteria 3+ Coarse Granular Casts 0-5 SEEN Urine Mucus 0 SEEN Radiography Diagnostic Testing: Clinical Impression(s) from Imaging Studies Brain CT 09/22/24 12:38 IMPRESSION: No CT evidence of acute intracranial pathology. Reading Location: [facility] Cervical Spine CT 09/22/24 12:38 IMPRESSION: No acute CT process in the cervical spine. One or more dose reduction techniques were used (e.g., Automated exposure control, adjustment of the mA and/or kV according to patient size, use of iterative reconstruction technique). Reading Location: [facility] Chest X-Ray 09/22/24 12:38 IMPRESSION: As above. Reading Location: [facility] Hip/Pelvis X-Ray 09/22/24 12:38 IMPRESSION: No acute radiographic process. Reading Location: [facility] Discharge Plan Triage Chief Complaint: General Illness ED Provider: Erik Salazar Dx/Rx/DC Orders Prescriptions: No Action amlodipine 5 mg tablet 5 mg PO DAILY Mekinist 0.5 mg tablet 2 mg PO DAILY Rx Instructions: must be taken on empty stomach, at least 1 hr before or 2-3 hrs after meal/food Primary Care Provider: Samira Akers NP Referrals: Samira Akers PLANER OPERATOR, PLANER OPERATOR-C [Primary Care Provider] - Print Language: Spanish
--- NOTE | 2024-09-22 12:38 | RAD_ITS ---
PROCEDURE: CHEST 1 VIEW (PORTABLE) REASON FOR EXAM: Confused TECHNIQUE: Single frontal image including the chest and abdomen. COMPARISON: None. FINDINGS: Minimally displaced posterolateral right 6th rib fracture. No pneumothorax. Patchy opacity at the left base are nonspecific. Right lung grossly clear. Heart size unremarkable. RAD/Chest 1 View (Portable) IMPRESSION: As above. Reading Location: [facility]
--- NOTE | 2024-09-22 12:38 | CT_ITS ---
EXAM: BRAIN/HEAD WITHOUT CONTRAST CLINICAL HISTORY: Headache COMPARISON: None. TECHNIQUE: Noncontrast images of the head with multiplanar reconstructions. Dose reduction techniques were used including intermediate exposure control (AEC),iterative reconstruction technique, and/or mA and/or KV dose adjustments based on patient's size. FINDINGS: CT HEAD FINDINGS: Chronic changes. No acute intracranial hemorrhage, mass, mass effect, midline shift or pathologic extra-axial fluid collection. No hydrocephalus. Age- appropriate cerebral volume and white matter. Visualized paranasal sinuses and mastoid air cells are clear. The calvarium is grossly intact. CT/Brain/Head without Contrast IMPRESSION: No CT evidence of acute intracranial pathology. Reading Location: [facility]
--- NOTE | 2024-09-22 12:38 | RAD_ITS ---
PROCEDURE: HIP, UNI W/ PELVIS 2-3 VIEWS REASON FOR EXAM: Pain TECHNIQUE: Three views right hip COMPARISON: None. FINDINGS: No fracture. No suspicious bone lesion. Normal alignment. Soft tissues are unremarkable. Degenerative changes bilaterally. RAD/HIP, UNI W/ Pelvis 2-3 Views IMPRESSION: No acute radiographic process. Reading Location: [facility]
--- NOTE | 2024-09-22 12:38 | CT_ITS ---
PROCEDURE: SPINE CERVICAL WITHOUT CONTRAS REASON FOR EXAM: Trauma TECHNIQUE: Cervical spine CT without contrast. COMPARISON: None. FINDINGS: Alignment: Normal Vertebrae: No acute fracture Soft Tissues: Unremarkable Prominent multilevel degenerative changes with CT evidence of diffuse idiopathic skeletal hyperostosis CT/Spine Cervical without Contras IMPRESSION: No acute CT process in the cervical spine. One or more dose reduction techniques were used (e.g., Automated exposure contr ol, adjustment of the mA and/or kV according to patient size, use of iterative reconstruction technique). Reading Location: [facility]
--- NOTE | 2024-09-22 12:39 | EKG12_ITS ---
Test Reason : WEAKNESS Blood Pressure : */* mmHG Vent. Rate : 101 BPM Atrial Rate : 101 BPM P-R Int : 120 ms QRS Dur : 118 ms QT Int : 354 ms P-R-T Axes : * 29 18 degrees QTcB Int : 459 ms Sinus tachycardia Low voltage QRS Right bundle branch block Abnormal ECG Confirmed by Christian Cox ([id number]), technical editor OSMANY ALVARADO ([id number]) on 09/23/2024 11:07:45 AM Referred By: Confirmed By: Christian Cox
[2024-09-22 13:00] LABS: Absolute Lymphocyte Count 1.64 X10^3/uL (0.83-4.51); Absolute Neutrophil Count 19.8 X10^3/uL (2.0-7.7); Basophil# 0.06 X10^3/uL; Basophil% 0.2 % (0-1); Eosinophil# 0.13 X10^3/uL; Eosinophils% 0.5 % (0-5); Hematocrit 39.4 % (40-54); Lymphocyte # 1.64 X10^3/ul (0.83-4.51); Lymphocyte % 6.8 % (19-41); Mean Corpuscular Hgb 29.4 pg (27.0-32.0); Mean Corpuscular Volume 89.1 fL (80-94); Mean Platelet Vol. 11.2 fl (6.2-12.0); Monocyte# 1.53 X10^3/uL; Monocyte% 6.3 % (0-10); NRBC Flagged by Analyzer 0 % (0-5); Neutrophil # 19.81 X10^3/uL (2.7-7.7); Neutrophil % 81.9 % (47-70); POSITIVE DIFFERENTIAL YES; POSITIVE MORPHOLOGY YES; Platelet Count 156 K/mm3 (150-450); RBC Distribution Width CV 14.9 % (11.6-14.6); RBC Distribution Width SD 48.5 fl (35.1-43.9); Red Blood Count 4.42 M/mm3 (4.6-6.2); White Blood Count 24.2 K/mm3 (4.4-11.0)
[2024-09-22 13:04] LABS: Differential Indicated SCAN CRITERIA MET
[2024-09-22 13:16] LABS: ALB/GLOB Ratio 0.5 RATIO (0.9-2.4); AST(SGOT) 287 U/L (15-37); Alanine Aminotransfer ALT/SGPT 89 U/L (16-61); Albumin, Serum 2.3 g/dL (3.2-5.0); Alkaline Phosphatase 130 U/L (45-117); Anion Gap 10 (5-15); BUN 32 mg/dL (7-18); BUN/Creat Ratio 19.6 RATIO (10-20); Calcium,Total 8.3 mg/dL (8.5-10.1); Chloride 101 mmol/L (98-107); Creatinine, Serum 1.63 mg/dL (0.70-1.30); EST Glomerular Filtration Rate 45 mL/min (>60); Est Glom Filt Rate - Afr Amer 54 mL/min (>60); Estimated Creatinine Clearance 39.02 ml/min; Globulin 4.2 g/dL (2.2-4.2); Glucose 139 mg/dL (74-106); Lipase 41 U/L (73-393); Potassium 4.1 mmol/L (3.5-5.1); Protein, Total 6.5 g/dL (6.4-8.2); Sodium Level 138 mmol/L (136-145); Troponin-I HS 74 pg/mL (3.0-78.0)
[2024-09-22] MEDS: 0.9% Normal Saline (500mL Bag) 500 ML 1000 ML IV (13:36)
[2024-09-22 13:37] LABS: Acanthocytes RARE; Anisocytosis 1+; Crenated RBC 1+; Ovalocyte 1+; Platelet Estimate ADEQUATE (ADEQ); Schistocytes RARE; Tear Drop Cell RARE
[2024-09-22 14:01] LABS: Lactic Acid 2.6 mmol/L (0.4-1.9)
[2024-09-22 14:32] LABS: Color, Urine Yellow (Yellow); Glucose, Dipstick Normal (Normal); Ketone-Dipstick 50 mg/dl (Negative); Leukocyte Esterase-Dipstick 500 /ul (Negative); Nitrite-Dipstick Positive (Negative); Occult Blood-Urine 250 /ul (Negative); Protein-Dipstick 100 mg/dl (Negative); Urine Bilirubin Dipstick Negative (Negative); Urine Clarity Cloudy (Clear); Urine Urobilinogen 1 mg/dl (Normal)
[2024-09-22] MEDS: Piperacil/Tazobactam 4.5 GM in 0.9% Normal Saline (100mL MB+) 100 ML IV (14:36)
[2024-09-22] MEDS: 0.9% Normal Saline (1000mL) 1,000 ML 999 ML IV (14:37)
[2024-09-22 14:43] LABS: Red Blood Cells-Urine 25-50 SEEN /hpf (0-5); White Blood Cells 25-50 SEEN /hpf (0-5)
[2024-09-22 14:44] LABS: Bacteria 3+ /hpf (None Seen); Coarse Granular Cast 0-5 SEEN /lpf (0-5 /lpf); Mucous, Urine 0 SEEN /hpf (<or=2+); Renal Epithelial Cells 5-10 SEEN /hpf (0-5); Squamous Epithelial Cells - UA 5-10 SEEN /hpf (0-5); Transitional Epithelial - Ur 0-5 SEEN /hpf (0-5)
[2024-09-22] MEDS: Acetaminophen 325 MG Tablet 650 MG PO (14:44)
[2024-09-22] MEDS: Vancomycin HCl 1,500 MG in 0.9% Normal Saline (500mL Bag) 500 ML 250 MG IV (14:44)
[2024-09-22 14:45] LABS: Amorphous Sediment 3+
[2024-09-22 17:07] LABS: Reflex Lactate? Y
[2024-09-22 18:29] LABS: Lactic Acid 0.9 mmol/L (0.4-1.9)
--- NOTE | 2024-09-22 21:10 | HP.PCM.HOS_ITS ---
HPI - General General Date of Admission: 09/22/24 Date of Service: 09/22/24 Chief Complaint: ams, sepsis HPI Narrative IDALIA ROACH, is a 68-year-old male history of hypertension and metastatic melanoma with metastasis to the brain currently on experimental chemo medication through the [facility] facility presented [facility] ED 09/22/2024 with generalized weakness and increasing confusion. at bedside told ED provider that patient has been more confused and weak over the past couple of days and has not been eating or drinking well. Today he tried to get out of his recliner and slid down. In triage he is having visual hallucinations. In the ED blood pressure 151/97 with heart rate of 101, patient afebrile and 100% saturation on room air w/ RR of 22. He is found to have a white blood cell count of 24.2 with left shift. BUN of 32 with creatinine of 1.63, no baseline available in our system. Total bili 1.2, AST 287 with an ALT of 89 and alk phos 130. Lactic acid 2.6. Troponin 74. Chest x-ray showed minimally displaced posterior lateral right sixth rib fracture and patchy opacity left lung base. UA suspicious for UTI. Patient diagnosed with sepsis and bolused with 2 L IV fluids and given broad-spectrum antibiotics. Hospitalist contacted for admission. Evaluated patient with at bedside, patient was found to have a new metastatic lesion to his brain last per and up until a couple of months ago had been undergoing gamma knife radiation to his brain. He follows with [facility] and is on an experimental chemotherapy drug that he is still actively taking, she has the medicine at bedside. Patient has had worsening of his imbalance and worsening mental status. It is certainly possible that this is all due to underlying infection/sepsis however patient also medically complex with new brain lesion with metastatic melanoma on an experimental chemo medication and follows exclusively with the [facility] with all of his records through the [facility] and it is felt that patient would be more appropriate at a tertiary facility ideally through the [facility] system given that is where he gets his experimental chemo through. This was communicated to ED provider initiated transfer to [facility]. Given prolonged wait hospitalist contacted for admission. Upon initial evaluation patient's reports he has had more imbalance and has been more altered over the past couple of days and has had increased weakness, patient had difficulty with any specific ROS given his mental status but the generalized weakness and altered mental status are the primary concerns. [facility] Medical History (Updated 09/22/24 @ 21:[address] Louise Morillo MD) HTN (hypertension) Melanoma Home Medications ?Medication ?Instructions ?Recorded ?Last Taken ?Type amlodipine 5 mg tablet 5 mg PO DAILY 09/22/24 Unkno wn History trametinib 0.5 mg tablet ([facility]) 2 mg PO DAILY 05/08 Unknown History Allergy/AdvReac Type Severity Reaction Status Date / Time No Known Allergies Allergy Verified 09/22/24 12:05 Social History Smoking Status: Unknown if ever smoked ROS ROS Narrative Patient unable to accurately answer ROS given his mental status, reports more imbalance and patient is more altered as well as more weak overall, unable to obtain any general: Denies fever/chills general: Alert, oriented, no apparent distress Vital Signs Vital Signs Vital Signs: 09/22/24 12:06 09/22/24 12:06 09/22/24 12:33 Temperature 98.3 F 98.3 F Temperature Source Oral Temporal Pulse Rate 101 H 103 H Respiratory Rate 18 19 H Respiratory Effort Normal Respiratory Pattern Normal Blood Pressure 151/97 H 130/82 H Blood Pressure Mean 115 98 Pulse Ox 100 92 Oxygen Delivery Method Room Air 09/22/24 13:39 09/22/24 15:00 09/22/24 15:05 Temperature 99.2 F H 99.1 F 99.2 F H Temperature Source Oral Oral Pulse Rate 98 99 93 Respiratory Rate 22 H 18 18 Respiratory Effort Respiratory Pattern Blood Pressure 143/85 H 125/68 H 135/91 H Blood Pressure Mean 104 87 105 Pulse Ox 98 94 99 Oxygen Delivery Method Room Air Room Air 09/22/24 16:51 09/22/24 17:56 09/22/24 19:04 Temperature 97.7 F L 97.7 F L Temperature Source Oral Oral Pulse Rate 80 75 67 Respiratory Rate 14 12 Respiratory Effort Respiratory Pattern Blood Pressure 107/69 119/71 120/70 Blood Pressure Mean 81 87 86 Pulse Ox 94 94 97 Oxygen Delivery Method Room Air Room Air 09/22/24 20:00 09/22/24 21:00 Temperature Temperature Source Pulse Rate 90 86 Respiratory Rate 16 Respiratory Effort Respiratory Pattern Blood Pressure 119/84 H 135/99 H Blood Pressure Mean 95 111 Pulse Ox 92 Oxygen Delivery Method Room Air Weight Weight: 63.6 kg Body Mass Index (BMI) 22.6 Physical Exam Narrative HEENT: Atraumatic Eyes: Anicteric Neck: Supple Respiratory: No overt wheezes or rhonchi, normal respiratory effort Cardiovascular: Regular rate GI: Soft, nontender, nondistended Extremities: No edema Musculoskeletal: Moving all extremities Neuro: No overt focal neurological deficits but patient difficulty cooperating with exam Skin: Rashes in groin area on the back of hands Psych: Attempts to be cooperative but patient often answers questions that then says are not accurate Results Lab / Micro Data 09/22/24 12:22 09/22/24 12:22 Labs: Laboratory Results - last 24 hr 09/22/24 12:22: WBC 24.2 H, RBC 4.42 L, Hgb 13.0, Hct 39.4 L, MCV 89.1, MCH 29.4, MCHC 33.0, RDW Std Deviation 48.5 H, RDW Coeff of Samuel 14.9 H, Plt Count 156, MPV 11.2, Immature Gran % (Auto) 4.300 H, Neut % (Auto) 81.9 H, Lymph % (Auto) 6.8 L, [place] % (Auto) 6.3, Eos % (Auto) 0.5, Baso % (Auto) 0.2, Absolute Neuts (auto) 19.8 H, Absolute Lymphs (auto) 1.64, Nucleated RBC % 0, Differential Comment , Diff Path Review May foll, Platelet Estimate ADEQUATE, Anisocytosis 1+, Tear Drop Cells RARE, Ovalocytes 1+, Crenated Cell 1+, Acanthocytes (Spur) RARE, Schistocytes RARE, Sodium 138, Potassium 4.1, Chloride 101, Carbon Dioxide 26.0, Anion Gap 10, BUN 32 H, Creatinine 1.63 H, Estim Creat Clear Calc 39.02, Est GFR (MDRD) Af Amer 54 L, Est GFR (MDRD) Non-Af 45 L, BUN/Creatinine Ratio 19.6, Glucose 139 H, Lactic Acid 2.6 H*, Calcium 8.3 L, T otal Bilirubin 1.20 H, AST 287 H, ALT 89 H, Alkaline Phosphatase 130 H, Troponin I High Sens 74, Total Protein 6.5, Albumin 2.3 L, Globulin 4.2, Albumin/Globulin Ratio 0.5 L, Lipase 41 L 09/22/24 14:20: Urine Color Yellow, Urine Clarity Cloudy, Urine pH 6.0, Ur Specific [place] 1.020, Urine Protein 100 H, Urine Glucose (UA) Normal, Urine Ketones 50 H, Urine Occult Blood 250 H, Urine Nitrite Positive H, Urine Bilirubin Negative, Urine Urobilinogen 1 H, Ur Leukocyte Esterase 500 H, Urine RBC 25-50 SEEN, Urine WBC 25-50 SEEN, Ur Squamous Epith Cells 5-10 SEEN, Ur Transition Epith Cell 0-5 SEEN, Ur Renal Epithelial Cell 5-10 SEEN, Amorphous Sediment 3+, Urine Bacteria 3+, Coarse Granular Casts 0-5 SEEN, Urine Mucus 0 SEEN 09/22/24 17:50: Lactic Acid 0.9 Imaging Radiology Impression Brain CT 09/22/24 12:38 IMPRESSION: No CT evidence of acute intracranial pathology. Reading Location: [facility] Cervical Spine CT 09/22/24 12:38 IMPRESSION: No acute CT process in the cervical spine. One or more dose reduction techniques were used (e.g., Automated exposure control, adjustment of the mA and/or kV according to patient size, use of iterative reconstruction technique). Reading Location: [facility] Chest X-Ray 09/22/24 12:38 IMPRESSION: As above. Reading Location: [facility] Hip/Pelvis X-Ray 09/22/24 12:38 IMPRESSION: No acute radiographic process. Reading Location: [facility] Assessment & Plan Assessment/Plan (1) Sepsis: (2) Melanoma: PLAN: Plan # Concern for sepsis secondary to urinary or pulmonary source -Patient with white blood cell count of 24.2, lactic acid of 2.6 with a creatinine of 1.63 and elevated liver function tests and altered mental status, additionally respiratory rate of 22 and heart rate greater than 90 -Patient pancultured -IV fluids at 30 cc/kg NS bolus -UA concerning for UTI chest x-ray also with patchy opacity at left lung base -Broad-spectrum antibiotics while awaiting culture results -Also check sputum culture if able and urine antigens - COVID ordered, respiratory panel ordered -Mucinex, I/S #Metastatic melanoma -Per patient's patient was found to have a new brain met last -He is on experimental chemo medication through [facility] -Awaiting transfer, will continue pts experimental med (pt documented as taking/ brought in trametinib 2mg daily) while awaiting transfer # Elevated liver function tests - Total bili 1.2, AST 287 with an ALT of 89 and alk phos 130 -No abdominal complaints and abdominal exam benign, given to other possible sources no CT scan of the abdomen obtained in the ED -Will obtain right upper quadrant # Abnormal UA -Concern for UTI, management as above # FELIZ versus CKD -Creatinine 1.63, no baseline available in this chart, ED physician reports that this is higher than baseline(at least 0.3 higher) -IV fluids -Urine electrolytes # Minimally displaced posterior lateral right sixth rib fracture -Lidocaine patch -Pain control -Incentive spirometer #DVT ppx: SCDs Louise Morillo MD Time spent in the patient's overall evaluation, decision-making process, review of diagnostic data, adjustment of management, discussion with other providers, nursing and ancillary staff involved in patient's care documentation,80 Minutes Charges/Coding Visit Charges Inpatient E&M: 29907 Init Hosp L3
[2024-09-23] VITALS (17 sets, daily range): BP systolic 116–147; BP diastolic 68–131; PULSE 72–126; RESP 13–20; TEMP 36.2–37.1; O2SAT 85–99
--- NOTE | 2024-09-23 00:14 | PCM.RX.CS ---
Consult Antibiotic Management Pharmacy has been consulted to manage selected antibiotic: Vancomycin Type of Intervention Type of Consult: New start Labs Labs: Sodium 138 mmol/L (136-145) 09/22/24 12:22 Potassium 4.1 mmol/L (3.5-5.1) 09/22/24 12:22 Chloride 101 mmol/L (98-107) 09/22/24 12:22 Carbon Dioxide 26.0 mmol/L (21.0-32.0) 09/22/24 12:22 Anion Gap 10 (5-15) 09/22/24 12:22 BUN 32 mg/dL (7-18) H 09/22/24 12:22 Creatinine 1.63 mg/dL (0.70-1.30) H 09/22/24 12:22 Est GFR (MDRD) Af Amer 54 mL/min (>60) L 09/22/24 12:22 Est GFR (MDRD) Non-Af 45 mL/min (>60) L 09/22/24 12:22 BUN/Creatinine Ratio 19.6 RATIO (10-20) 09/22/24 12:22 Glucose 139 mg/dL (74-106) H 09/22/24 12:22 Dosing Weight Weight used for dosin.8 kg Estimated Creatinine Clearance Estimated Creatinine Clearance: 39.02 Goal Trough Goal Trough: 15-20 mcg/mL Pharmacy Plan for Drug Dosing Pharmacy Plan for Drug Dosing: Pharmacy Service will continue to monitor and adjust dosing as required. ER DOSE 1500MG GIVEN 09/22 @ 1444. START 750MG Q24H AND DRAW TROUGH PRIOR TO 3RD DOSE Follow-Up Labs Follow-Up Labs: Trough: Vancomycin Date/Time Labs Ordered Labs to be done on [date and time ordered]: 09/24 @ 1430
[2024-09-23] MEDS: 0.9% Normal Saline (1000mL) 1,000 ML 50 ML IV (00:56)
[2024-09-23] MEDS: Lidocaine 5% Patch 1 PATCH TOPICAL (00:56)
[2024-09-23] MEDS: Piperacil/Tazobactam 3.375 GM in 0.9% Normal Saline (50mL MB+) 50 ML IV ×4 (00:56→22:24)
[2024-09-23] MEDS: Triamcinolone 0.5% Cream 1 APPLIC TOPICAL ×3 (01:00→22:25)
[2024-09-23] MEDS: Ketoconazole Cream 1 APPLIC TOPICAL ×3 (01:00→22:25)
--- NOTE | 2024-09-23 04:09 | CPS ---
2L NC placed on patient due to SPO2 dropping during sleep
[2024-09-23 04:24] LABS: Urea Nitrogen, Urine 781 mg/dL (NO RANGE EST.); Urine Chloride 15 mmol/L (Not Establ.); Urine Sodium 15 mmol/L (Not Establ.)
[2024-09-23 05:55] LABS: Absolute Lymphocyte Count 1.47 X10^3/uL (0.83-4.51); Absolute Neutrophil Count 15.4 X10^3/uL (2.0-7.7); Basophil# 0.12 X10^3/uL; Basophil% 0.7 % (0-1); Eosinophil# 0.13 X10^3/uL; Eosinophils% 0.7 % (0-5); Hematocrit 34.2 % (40-54); Hemoglobin 11.6 g/dL (13.0-16.5); Lymphocyte # 1.47 X10^3/ul (0.83-4.51); Mean Corp Hgb Conc 33.9 g/dL (32-36); Mean Corpuscular Volume 88.4 fL (80-94); Mean Platelet Vol. 11.2 fl (6.2-12.0); Monocyte# 0.98 X10^3/uL; Monocyte% 5.3 % (0-10); NRBC Flagged by Analyzer 0 % (0-5); Neutrophil # 15.42 X10^3/uL (2.7-7.7); Neutrophil % 84.1 % (47-70); POSITIVE MORPHOLOGY YES; Platelet Count 125 K/mm3 (150-450); RBC Distribution Width CV 15.5 % (11.6-14.6); RBC Distribution Width SD 49.4 fl (35.1-43.9); Red Blood Count 3.87 M/mm3 (4.6-6.2); White Blood Count 18.3 K/mm3 (4.4-11.0)
[2024-09-23 05:59] LABS: Differential Indicated SCAN CRITERIA MET
[2024-09-23 06:10] LABS: ALB/GLOB Ratio 0.5 RATIO (0.9-2.4); AST(SGOT) 223 U/L (15-37); Alanine Aminotransfer ALT/SGPT 79 U/L (16-61); Albumin, Serum 1.8 g/dL (3.2-5.0); Alkaline Phosphatase 94 U/L (45-117); Anion Gap 6 (5-15); BUN 37 mg/dL (7-18); BUN/Creat Ratio 25.7 RATIO (10-20); Calcium,Total 7.5 mg/dL (8.5-10.1); Chloride 110 mmol/L (98-107); Creatinine, Serum 1.44 mg/dL (0.70-1.30); EST Glomerular Filtration Rate 52 mL/min (>60); Est Glom Filt Rate - Afr Amer 63 mL/min (>60); Estimated Creatinine Clearance 44.31 ml/min; Globulin 3.4 g/dL (2.2-4.2); Glucose 210 mg/dL (74-106); Potassium 3.9 mmol/L (3.5-5.1); Protein, Total 5.2 g/dL (6.4-8.2); Sodium Level 142 mmol/L (136-145)
--- NOTE | 2024-09-23 06:30 | US_ITS ---
PROCEDURE: ABDOMEN LIMITED REASON FOR EXAM: Abnormal liver function tests. COMPARISON: None FINDINGS: Liver: Liver measures 13.6 cm and demonstrates a homogeneous echotexture. No intrahepatic ductal dilatation is identified. No intrahepatic mass is seen. There is hepatopetal flow within the main portal vein. Gallbladder: No stones, sludge, wall thickening or tenderness. Common bile duct: Normal measuring 4 mm. Pancreas: Nonvisualization due to bowel gas. Visualized portions of the right kidney are unremarkable. Right kidney measures 10.8 cm in the long axis. No right upper quadrant ascites. US/Abdomen Limited IMPRESSION: NORMAL RIGHT UPPER QUADRANT ULTRASOUND. [facility]
--- NOTE | 2024-09-23 09:19 | CASEMGMT ---
Per ICU rounds, the pt is requiring transfer to a tertiary facility. Per [facility], the pt is on experimental chemo medications through [facility] and transfer to [facility] is required to meet the patient's level of care needs. Pt has MCR and this facility is in-network.
[2024-09-23] MEDS: amLODIPine 5 MG Tablet PO (09:37)
[2024-09-23] MEDS: Nystatin Powder 15gm Bottle 1 APPLIC TOPICAL ×2 (09:41→22:26)
--- NOTE | 2024-09-23 11:09 | PCM.PN.HOSP ---
Subjective Subjective Doing well, no issues overnight. Infection is slowly improving Objective Data Objective Data Vital Signs: Vital Signs Temp Pulse Resp BP Pulse Ox O2 Del Method O2 Flow Rate 97.6 F L 87 15 119/78 98 Room Air 2 09/23/24 08:00 09/23/24 08:00 09/23/24 08:00 09/23/24 08:00 09/23/24 08:00 09/23/24 08:00 09/23/24 06:00 Oxygen Flow Rate (L/min) 2 Oxygen Delivery Method Room Air Weight: 142 lb 13.753 oz Body Mass Index (BMI) 23.0 Intake & Output: Intake and Output for Last 24 Hours 09/22/24 09/23/24 09/24/24 03:59 03:59 03:59 Intake Total 2129 570 / 570 Balance 2129 570 / 570 Medical Nutrition Assessment Dietitian: Malnutrition Criteria Met Start: 09/23/24 10:10 Freq: Status: Active Protocol: Document 09/23/24 10:10 SLA (Rec: 09/23/24 10:10 SLA [id number]) Nutrition Malnutrition Evidence of Yes Malnutrition Exists Malnutrition (severe Acute Illness/Injury ): Evidenced By Suboptimal Energy Intake (Severe),Weight Loss (Severe) Intake Problem Inadequate Oral Intake Status Inactive Problem Clinical Problem Acute Disease or Injury Related Malnutrition Etiology related to illness w/ increased confusion and weakness w/ inadequate energy intake Signs/Symptoms as evidenced by reports of decreased eating/drinking and 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 Rec 4 oz ensure plus high protein tid w/ meals once diet resumes for increased nutrition if consumed. Lab / Micro Data 09/23/24 05:45 09/23/24 05:45 Labs: Laboratory Results - last 24 hr 09/22/24 12:22: WBC 24.2 H, RBC 4.42 L, Hgb 13.0, Hct 39.4 L, MCV 89.1, MCH 29.4, MCHC 33.0, RDW Std Deviation 48.5 H, RDW Coeff of Samuel 14.9 H, Plt Count 156, MPV 11.2, Immature Gran % (Auto) 4.300 H, Neut % (Auto) 81.9 H, Lymph % (Auto) 6.8 L, [place] % (Auto) 6.3, Eos % (Auto) 0.5, Baso % (Auto) 0.2, Absolute Neuts (auto) 19.8 H, Absolute Lymphs (auto) 1.64, Nucleated RBC % 0, Differential Comment , Diff Path Review May foll, Platelet Estimate ADEQUATE, Anisocytosis 1+, Tear Drop Cells RARE, Ovalocytes 1+, Crenated Cell 1+, Acanthocytes (Spur) RARE, Schistocytes RARE, Sodium 138, Potassium 4.1, Chloride 101, Carbon Dioxide 26.0, Anion Gap 10, BUN 32 H, Creatinine 1.63 H, Estim Creat Clear Calc 39.02, Est GFR (MDRD) Af Amer 54 L, Est GFR (MDRD) Non-Af 45 L, BUN/Creatinine Ratio 19.6, Glucose 139 H, Lactic Acid 2.6 H*, Calcium 8.3 L, Total Bilirubin 1.20 H, AST 287 H, ALT 89 H, Alkaline Phosphatase 130 H, Troponin I High Sens 74, Total Protein 6.5, Albumin 2.3 L, Globulin 4.2, Albumin/Globulin Ratio 0.5 L, Lipase 41 L 09/22/24 14:20: Urine Color Yellow, Urine Clarity Cloudy, Urine pH 6.0, Ur Specific [place] 1.020, Urine Protein 100 H, Urine Glucose (UA) Normal, Urine Ketones 50 H, Urine Occult Blood 250 H, Urine Nitrite Positive H, Urine Bilirubin Negative, Urine Urobilinogen 1 H, Ur Leukocyte Esterase 500 H, Urine RBC 25-50 SEEN, Urine WBC 25-50 SEEN, Ur Squamous Epith Cells 5-10 SEEN, Ur Transition Epith Cell 0-5 SEEN, Ur Renal Epithelial Cell 5-10 SEEN, Amorphous Sediment 3+, Urine Bacteria 3+, Coarse Granular Casts 0-5 SEEN, Urine Mucus 0 SEEN, Ur Random Sodium 15, Urine Creatinine 148.00, Urine Potassium 56.0, Urine Chloride 15, Urine Urea Nitrogen 781 09/22/24 17:50: Lactic Acid 0.9 09/23/24 05:45: WBC 18.3 H, RBC 3.87 L, Hgb 11.6 L, Hct 34.2 L, MCV 88.4, MCH 30.0, MCHC 33.9, RDW Std Deviation 49.4 H, RDW Coeff of Samuel 15.5 H, Plt Count 125 L, MPV 11.2, Immature Gran % (Auto) 1.200 H, Neut % (Auto) 84.1 H, Lymph % (Auto) 8.0 L, [place] % (Auto) 5.3, Eos % (Auto) 0.7, Baso % (Auto) 0.7, Absolute Neuts (auto) 15.4 H, Absolute Lymphs (auto) 1.47, Nucleated RBC % 0, Differential Comment , Sodium 142, Potassium 3.9, Chloride 110 H, Carbon Dioxide 26.0, Anion Gap 6, BUN 37 H, Creatinine 1.44 H, Estim Creat Clear Calc 44.31, Est GFR (MDRD) Af Amer 63, Est GFR (MDRD) Non-Af 52 L, BUN/Creatinine Ratio 25.7 H, Glucose 210 H, Calcium 7.5 L, Total Bilirubin 0.70, AST 223 H, ALT 79 H, Alkaline Phosphatase 94, Total Protein 5.2 L, Albumin 1.8 L, Globulin 3.4, Albumin/Globulin Ratio 0.5 L Micro: Microbiology 09/22/24 14:20 Urine, Clean Catch Urine Culture - Preliminary Gram negative krys 09/22/24 14:35 Blood Culture (Wb) - Anticubital Left Blood Culture - Preliminary 09/23/24 02:55 Mucosa - Nasopharyngeal Respiratory Panel (PCR) - Final 09/23/24 02:55 Mucosa - Nasopharyngeal SARS-CoV-2, Influenza & RSV (PCR) - Final 09/22/24 14:20 Blood Culture (Wb) - Anticubital Left Blood Culture - Preliminary 09/22/24 14:20 Urine, Clean Catch Legionella Antigen - Final 09/22/24 14:20 Urine, Clean Catch Streptococcus pneumoniae Antigen (M - Final Radiography Diagnostic Testing: Radiology Impression Brain CT 09/22/24 12:38 IMPRESSION: No CT evidence of acute intracranial pathology. Reading Location: [facility] Cervical Spine CT 09/22/24 12:38 IMPRESSION: No acute CT process in the cervical spine. One or more dose reduction techniques were used (e.g., Automated exposure control, adjustment of the mA and/or kV according to patient size, use of iterative reconstruction technique). Reading Location: [facility] Chest X-Ray 09/22/24 12:38 IMPRESSION: As above. Reading Location: [facility] Hip/Pelvis X-Ray 09/22/24 12:38 IMPRESSION: No acute radiographic process. Reading Location: [facility] Physical Exam Narrative General: Alert, Oriented x3, Cooperative, No apparent distress HEENT: Atraumatic, PERRLA, EOMI, Normocephalic Oral: Moist Mucosa Neck: Supple, No JVD Lungs: Clear to auscultation, Normal air movement, No rhonchi, No wheeze, No rales Cardiovascular: Regular rate, Regular Rhythm, Normal S1, Normal S2, No murmurs Abdomen: Soft, Non Tender, Non-Distended, No Hepato-splenomegaly Extremities: No edema, Capillary Refill Less than 3 Seconds Skin: No rashes, No breakdown Musculoskeletal: No Tenderness to Palpation of Joints or Extremities Neurological: Cooperation is difficult, moves all extremities, no focal neurological deficits Psych/Mental Status: Flat Assessment & Plan Assessment/Plan (1) Sepsis: (2) Melanoma: PLAN: Plan # Concern for sepsis secondary to urinary or pulmonary source -Gram-negative krys in urine -Patient pancultured -IV fluids at 30 cc/kg NS bolus -UA concerning for UTI chest x-ray also with patchy opacity at left lung base -Broad-spectrum antibiotics while awaiting culture results -Sputum culture as well as COVID panel and respiratory panel are negative -Mucinex, I/S #Metastatic melanoma -Per patient's patient was found to have a new brain met last -He is on experimental chemo medication through [facility] -Awaiting transfer, will continue pts experimental med (pt documented as taking/ brought in trametinib 2mg daily) while awaiting transfer # Elevated liver function tests - Total bili 1.2, AST 287 with an ALT of 89 and alk phos 130 -No abdominal complaints and abdominal exam benign, given to other possible sources no CT scan of the abdomen obtained in the ED -Right upper quadrant ultrasound is pending # FELIZ versus CKD -Creatinine 1.63, no baseline available in this chart, ED physician reports that this is higher than baseline(at least 0.3 higher) -IV fluids -Urine electrolytes # Minimally displaced posterior lateral right sixth rib fracture -Lidocaine patch -Pain control -Incentive spirometer DVT: SCDs Charges/Coding Visit Charges Inpatient E&M: 69352 Subs Hosp L2
[2024-09-23 13:31] LABS: Pathologist Review Reviewed
[2024-09-23] MEDS: 0.9% Saline Lock 10 ML Syringe IV ×3 (13:51→23:19)
[2024-09-23] MEDS: Vancomycin HCl 750 MG in 0.9% Normal Saline (250mL Bag) 250 ML 250 MG IV (15:03)
[2024-09-23] MEDS: Acetaminophen 325 MG Tablet 650 MG PO (15:22)
--- NOTE | 2024-09-23 22:38 | EKG12_ITS ---
Test Reason : TACHYCARDIA Blood Pressure : */* mmHG Vent. Rate : 130 BPM Atrial Rate : * BPM P-R Int : * ms QRS Dur : 124 ms QT Int : 356 ms P-R-T Axes : * 23 -5 degrees QTcB Int : 523 ms Atrial fibrillation with rapid ventricular response Right bundle branch block Abnormal ECG Confirmed by Christian Cox ([id number]), newspaper editor managing SHARONDA MOBLEY ([id number]) on 09/25/2024 7:01:10 AM Referred By: BAL Confirmed By: Christian Cox
[2024-09-23] MEDS: Digoxin 250 MCG/ML Ampul 500 MCG IV (23:18)
[2024-09-24] VITALS (10 sets, daily range): BP systolic 108–156; BP diastolic 69–98; PULSE 75–121; RESP 14–22; TEMP 36.5–36.7; O2SAT 95–99; BMI 22.9
[2024-09-24 00:09] LABS: Magnesium 2.5 mg/dL (1.6-2.6); Phosphorus 3.6 mg/dL (2.5-4.9)
[2024-09-24 04:26] LABS: Absolute Lymphocyte Count 1.94 X10^3/uL (0.83-4.51); Basophil# 0.07 X10^3/uL; Basophil% 0.5 % (0-1); Eosinophil# 0.04 X10^3/uL; Eosinophils% 0.3 % (0-5); Hematocrit 38.9 % (40-54); Hemoglobin 13.1 g/dL (13.0-16.5); Lymphocyte # 1.94 X10^3/ul (0.83-4.51); Lymphocyte % 13.1 % (19-41); Mean Corp Hgb Conc 33.7 g/dL (32-36); Mean Corpuscular Hgb 29.6 pg (27.0-32.0); Mean Platelet Vol. 11.4 fl (6.2-12.0); Monocyte# 0.72 X10^3/uL; Monocyte% 4.9 % (0-10); NRBC Flagged by Analyzer 0.1 % (0-5); POSITIVE MORPHOLOGY YES; Platelet Count 132 K/mm3 (150-450); RBC Distribution Width CV 15.5 % (11.6-14.6); RBC Distribution Width SD 50.1 fl (35.1-43.9); Red Blood Count 4.42 M/mm3 (4.6-6.2); White Blood Count 14.8 K/mm3 (4.4-11.0)
[2024-09-24 04:37] LABS: Differential Indicated SCAN CRITERIA MET
[2024-09-24 04:46] LABS: Anion Gap 6 (5-15); BUN 42 mg/dL (7-18); BUN/Creat Ratio 29.6 RATIO (10-20); Chloride 113 mmol/L (98-107); Creatinine, Serum 1.42 mg/dL (0.70-1.30); EST Glomerular Filtration Rate 53 mL/min (>60); Est Glom Filt Rate - Afr Amer 64 mL/min (>60); Estimated Creatinine Clearance 44.93 ml/min; Glucose 206 mg/dL (74-106); Potassium 4.2 mmol/L (3.5-5.1); Sodium Level 142 mmol/L (136-145)
[2024-09-24] MEDS: Piperacil/Tazobactam 3.375 GM in 0.9% Normal Saline (50mL MB+) 50 ML IV ×3 (05:31→21:57)
[2024-09-24] MEDS: 0.9% Saline Lock 10 ML Syringe IV ×2 (10:58→13:55)
[2024-09-24] MEDS: Triamcinolone 0.5% Cream 1 APPLIC TOPICAL ×2 (10:59→21:57)
[2024-09-24] MEDS: Nystatin Powder 15gm Bottle 1 APPLIC TOPICAL ×2 (10:59→21:56)
[2024-09-24] MEDS: Ketoconazole Cream 1 APPLIC TOPICAL ×2 (11:00→21:55)
[2024-09-24] MEDS: amLODIPine 5 MG Tablet PO (11:55)
--- NOTE | 2024-09-24 12:23 | PN.HOSP_ITS ---
Subjective Subjective Doing well, went into A-fib overnight and was given additional digoxin which helped. Will trial him on metoprolol Objective Data Objective Data Vital Signs: Vital Signs Temp Pulse Resp BP Pulse Ox O2 Del Method O2 Flow Rate 97.8 F 119 H 14 154/93 H 97 Room Air 2 09/24/24 09:21 09/24/24 11:53 09/24/24 09:21 09/24/24 11:53 09/24/24 09:21 09/24/24 11:35 09/23/24 06:00 Oxygen Flow Rate (L/min) 2 Oxygen Delivery Method Room Air Weight: 142 lb 6.698 oz Body Mass Index (BMI) 22.9 Intake & Output: Intake and Output for Last 24 Hours 09/23/24 09/24/24 09/25/24 03:59 03:59 03:59 Intake Total 2129 / 0 935 / 935 50 / 50 Output Total 950 / 950 400 / 400 Balance 2129 / 0 -15 / -15 -350 / -350 Medical Nutrition Assessment Dietitian: Malnutrition Criteria Met Start: 09/23/24 10:10 Freq: Status: Active Protocol: Document 09/23/24 10:10 SLA (Rec: 09/23/24 10:10 SLA [id number]) Nutrition Malnutrition Evidence of Yes Malnutrition Exists Malnutrition (severe Acute Illness/Injury ): Evidenced By Suboptimal Energy Intake (Severe),Weight Loss (Severe) Intake Problem Inadequate Oral Intake Status Inactive Problem Clinical Problem Acute Disease or Injury Related Malnutrition Etiology related to illness w/ increased confusion and weakness w/ inadequate energy intake Signs/Symptoms as evidenced by reports of decreased eating/drinking and 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 Rec 4 oz ensure plus high protein tid w/ meals once diet resumes for increased nutrition if consumed. Lab / Micro Data 09/24/24 04:11 09/24/24 04:11 Labs: Laboratory Results - last 24 hr 09/22/24 12:22: Diff Path Review Reviewed 09/23/24 23:41: Phosphorus 3.6, Magnesium 2.5 09/24/24 04:11: WBC 14.8 H, RBC 4.42 L, Hgb 13.1, Hct 38.9 L, MCV 88.0, MCH 29.6, MCHC 33.7, RDW Std Deviation 50.1 H, RDW Coeff of Samuel 15.5 H, Plt Count 132 L, MPV 11.4, Immature Gran % (Auto) 0.200, Neut % (Auto) 81.0 H, Lymph % (Auto) 13.1 L, [place] % (Auto) 4.9, Eos % (Auto) 0.3, Baso % (Auto) 0.5, Absolute Neuts (auto) 12.0 H, Absolute Lymphs (auto) 1.94, Nucleated RBC % 0.1, Sodium 142, Potassium 4.2, Chloride 113 H, Carbon Dioxide 23.0, Anion Gap 6, BUN 42 H, Creatinine 1.42 H, Estim Creat Clear Calc 44.93, Est GFR (MDRD) Af Amer 64, Est GFR (MDRD) Non-Af 53 L, BUN/Creatinine Ratio 29.6 H, Glucose 206 H, Calcium 8.0 L Micro: Microbiology 09/22/24 14:20 Blood Culture (Wb) - Anticubital Left Blood Culture - Preliminary GNR Poss Pseudomonas sp Coag Negative Staph 09/22/24 14:20 Urine, Clean Catch Urine Culture - Preliminary Pseudomonas aeruginosa 09/22/24 14:35 Blood Culture (Wb) - Anticubital Left Blood Culture - Preliminary GNR Poss Pseudomonas sp 09/23/24 02:55 Mucosa - Nasopharyngeal Respiratory Panel (PCR) - Final 09/23/24 02:55 Mucosa - Nasopharyngeal SARS-CoV-2, Influenza & RSV (PCR) - Final 09/22/24 14:20 Urine, Clean Catch Legionella Antigen - Final 09/22/24 14:20 Urine, Clean Catch Streptococcus pneumoniae Antigen (M - Final Radiography Diagnostic Testing: Radiology Impression Abdomen Ultrasound 09/23/24 06:30 IMPRESSION: NORMAL RIGHT UPPER QUADRANT ULTRASOUND. Reading Location: [facility] Physical Exam Narrative General: Alert, Oriented x1, No apparent distress, confused HEENT: Atraumatic, PERRLA, EOMI, Normocephalic Oral: Moist Mucosa Neck: Supple, No JVD Lungs: Diminished, Normal air movement, No rhonchi, No wheeze, No rales Cardiovascular: Irregular rate and rhythm, normal S1, Normal S2, No murmurs Abdomen: Soft, Non Tender, Non-Distended, No Hepato-splenomegaly Extremities: No edema, Capillary Refill Less than 3 Seconds Skin: No rashes, No breakdown Musculoskeletal: No Tenderness to Palpation of Joints or Extremities Neurological: Cooperation is difficult, moves all extremities, no focal neurological deficits Psych/Mental Status: Flat Assessment & Plan Assessment/Plan (1) Sepsis: (2) Melanoma: PLAN: Plan # Concern for sepsis secondary to urinary or pulmonary source -Gram-negative krys in urine -Patient pancultured -IV fluids at 30 cc/kg NS bolus -UA concerning for UTI chest x-ray also with patchy opacity at left lung base -Broad-spectrum antibiotics while awaiting culture results -Sputum culture as well as COVID panel and respiratory panel are negative -Mucinex, I/S #Metastatic melanoma -Per patient's patient was found to have a new brain met last -He is on experimental chemo medication through [facility] -Awaiting transfer, will continue pts experimental med (pt documented as taking/ brought in trametinib 2mg daily) while awaiting transfer # Elevated liver function tests - Total bili 1.2, AST 287 with an ALT of 89 and alk phos 130 -No abdominal complaints and abdominal exam benign, given to other possible sources no CT scan of the abdomen obtained in the ED -Right upper quadrant ultrasound is pending # FELIZ versus CKD -Creatinine 1.63, no baseline available in this chart, ED physician reports that this is higher than baseline(at least 0.3 higher) -IV fluids -Urine electrolytes # Minimally displaced posterior lateral right sixth rib fracture -Lidocaine patch -Pain control -Incentive spirometer #New onset A-fib ? Received but does not Redoxon overnight, will obtain a TSH and an echo ? Will start him on metoprolol 25 mg p.o. twice daily DVT: SCDs Charges/Coding Visit Charges Inpatient E&M: 85416 Subs Hosp L2
[2024-09-24] MEDS: Metoprolol Tartrate 25 MG Tablet PO ×2 (13:56→21:53)
--- NOTE | 2024-09-24 14:53 | ECHOD_ITS ---
Reason For Study Reason For Study: Afib/Flutter Procedure This was a 2D Doppler, Color Flow transthoracic echocardiogram. Technically difficult study, patient would not allow probe for subcostal imaging, patient was very confused. Exam performed portable in patient room. Left Ventricle Normal LV size. The estimated ejection fraction is 65 %. No evidence for diastolic dysfunction. No regional wall motion abnormalities noted. Right Ventricle Normal RV size. Normal systolic function. Atria The left and right atria are normal. No doppler evidence for ASD. Mitral Valve There is no mitral valve stenosis. Trivial mitral valve insufficiency. Tricuspid Valve There is no tricuspid stenosis. Trivial tricuspid valve insufficiency. Pulmonary artery systolic pressure is 30 mmHg. Aortic Valve There is no aortic stenosis. No aortic valve insufficiency. Pulmonic Valve There is no pulmonic valvular stenosis. No pulmonic valve insufficiency. Great Vessels Normal aortic root. Pericardium/Pleural No pericardial effusion. MMode/2D Measurements & Calculations LVIDd: 4.1 cm IVSd: 0.89 cm Ao root diam: 3.7 cm LVIDs: 3.0 cm LVPWd: 0.94 cm RVDd: 3.0 cm FS: 26.9 % LAV(MOD-bp): 28.4 ml LVAd ap4: 19.9 cm2 SV(MOD-sp4): 22.7 ml LAV(MOD-bp) Indexed: 16.4 ml/m2 LVLd ap4: 7.7 cm SI(MOD-sp4): 13.1 ml/m2 LAV(MOD-sp2): 31.8 ml EDV(MOD-sp4): 44.7 ml LAV(MOD-sp4): 21.3 ml EDV(sp4-el): 43.8 ml LVAs ap4: 12.6 cm2 LVLs ap4: 6.3 cm ESV(MOD-sp4): 22.0 ml ESV(sp4-el): 21.4 ml EF(MOD-sp4): 50.9 % EF(sp4-el): 51.1 % SV(sp4-el): 22.4 ml LA A4 area: 11.5 cm2 RA A4 area: 12.2 cm2 TAPSE: 1.7 cm Time Measurements MV dec time: 0.16 sec Doppler Measurements & Calculations MV E max harinder: 50.2 cm/sec Lat Peak E' Harinder: 9.6 cm/sec Med Peak E' Harinder: 6.2 cm/sec MV A max harinder: 89.9 cm/sec E/E' lat: 5.2 E/E' med: 8.1 MV E/A: 0.56 MV V2 max: 94.1 cm/sec MV P1/2t max harinder: 54.4 cm/sec Ao V2 max: 103.9 cm/sec MV max P.5 mmHg MV P1/2t: 53.8 msec Ao max P.3 mmHg MV V2 mean: 50.3 cm/sec MV dec slope: 295.8 cm/sec2 MV mean P.2 mmHg MV V2 VTI: 19.4 cm MVA(P1/2t): 4.1 cm2 LV V1 max: 93.4 cm/sec MR max harinder: 416.3 cm/sec TR max harinder: 254.3 cm/sec LV V1 max P.5 mmHg MR max P.3 mmHg TR max P.9 mmHg ECHO/Echo Complete Interpretation Summary The estimated ejection fraction is 65 %. No evidence for diastolic dysfunction. Trivial mitral valve insufficiency. Ordering Physician: Bossman Chambers Referring Physician: Samira Akers Performed By: Star Mathur RCS
--- NOTE | 2024-09-24 14:55 | WOUNDNOTE ---
wound photo: inner buttocks
[2024-09-24 17:40] LABS: Vancomycin, Trough Level 10.6 ug/mL (5.0-15.0)
[2024-09-24] MEDS: Vancomycin HCl 1,250 MG in 0.9% Normal Saline (250mL Bag) 250 ML 167 MG IV (18:25)
--- NOTE | 2024-09-24 18:45 | PCM.RX.CS ---
Consult Antibiotic Management Pharmacy has been consulted to manage selected antibiotic: Vancomycin Type of Intervention Type of Consult: Follow-up Prior Doses of Antibiotics Prior Doses of Antibiotics Received/Current Regimen: current dose is vanc 750mg IV q24h Labs Labs: Sodium 142 mmol/L (136-145) 09/24/24 04:11 Potassium 4.2 mmol/L (3.5-5.1) 09/24/24 04:11 Chloride 113 mmol/L (98-107) H 09/24/24 04:11 Carbon Dioxide 23.0 mmol/L (21.0-32.0) 09/24/24 04:11 Anion Gap 6 (5-15) 09/24/24 04:11 BUN 42 mg/dL (7-18) H 09/24/24 04:11 Creatinine 1.42 mg/dL (0.70-1.30) H 09/24/24 04:11 Est GFR (MDRD) Af Amer 64 mL/min (>60) 09/24/24 04:11 Est GFR (MDRD) Non-Af 53 mL/min (>60) L 09/24/24 04:11 BUN/Creatinine Ratio 29.6 RATIO (10-20) H 09/24/24 04:11 Glucose 206 mg/dL (74-106) H 09/24/24 04:11 Vancomycin Trough 10.6 ug/mL (5.0-15.0) 09/24/24 15:55 Microbiology Microbiology: Microbiology 09/22/24 14:20 Blood Culture (Wb) - Anticubital Left Blood Culture - Preliminary GNR Poss Pseudomonas sp Coag Negative Staph 09/22/24 14:20 Urine, Clean Catch Urine Culture - Preliminary Pseudomonas aeruginosa 09/22/24 14:35 Blood Culture (Wb) - Anticubital Left Blood Culture - Preliminary GNR Poss Pseudomonas sp 09/23/24 02:55 Mucosa - Nasopharyngeal Respiratory Panel (PCR) - Final 09/23/24 02:55 Mucosa - Nasopharyngeal SARS-CoV-2, Influenza & RSV (PCR) - Final 09/22/24 14:20 Urine, Clean Catch Legionella Antigen - Final 09/22/24 14:20 Urine, Clean Catch Streptococcus pneumoniae Antigen (M - Final Dosing Weight Weight used for dosin.6 kg Estimated Creatinine Clearance Estimated Creatinine Clearance: 45 ml/min Goal Trough Goal Trough: 15-20 mcg/mL Pharmacy Plan for Drug Dosing Pharmacy Plan for Drug Dosing: The vanc trough drawn at 15:55 today (approx 25 hours after the previous dose) was 10.6. This is below goal so will increase dose to a newly calculated dose of 1250mg IV q24h. Repeat a trough before the 3rd dose. Pharmacy Service will continue to monitor and adjust dosing as required. Follow-Up Labs Follow-Up Labs: Trough: Vancomycin Date/Time Labs Ordered Labs to be done on [date and time ordered]: 09/26/24 17:30
--- NOTE | 2024-09-24 19:51 | NURSING ---
1950- report called to [facility] nurse by this RN
[2024-09-24] MEDS: MELATONIN 3 MG TABLET PO (21:54)
--- NOTE | 2024-09-24 23:56 | NURSING ---
This RN is taking over care at this time.
[2024-09-25] VITALS (7 sets, daily range): BP systolic 130–152; BP diastolic 69–109; PULSE 60–68; RESP 15–16; TEMP 36.3–36.7; O2SAT 94–98; BMI 22.9
[2024-09-25] MEDS: Piperacil/Tazobactam 3.375 GM in 0.9% Normal Saline (50mL MB+) 50 ML IV ×3 (05:03→22:34)
[2024-09-25 08:21] LABS: Absolute Lymphocyte Count 2.09 X10^3/uL (0.83-4.51); Basophil# 0.05 X10^3/uL; Basophil% 0.5 % (0-1); Eosinophil# 0.01 X10^3/uL; Eosinophils% 0.1 % (0-5); Hematocrit 35.5 % (40-54); Hemoglobin 11.5 g/dL (13.0-16.5); Lymphocyte # 2.09 X10^3/ul (0.83-4.51); Lymphocyte % 20.9 % (19-41); Mean Corp Hgb Conc 32.4 g/dL (32-36); Mean Corpuscular Hgb 29.3 pg (27.0-32.0); Mean Corpuscular Volume 90.3 fL (80-94); Mean Platelet Vol. 11.6 fl (6.2-12.0); Monocyte# 0.66 X10^3/uL; Monocyte% 6.6 % (0-10); NRBC Flagged by Analyzer 0 % (0-5); Neutrophil # 7.04 X10^3/uL (2.7-7.7); Neutrophil % 70.6 % (47-70); Platelet Count 161 K/mm3 (150-450); RBC Distribution Width CV 15.4 % (11.6-14.6); RBC Distribution Width SD 50.9 fl (35.1-43.9); Red Blood Count 3.93 M/mm3 (4.6-6.2)
[2024-09-25 08:53] LABS: Anion Gap 5 (5-15); BUN 37 mg/dL (7-18); BUN/Creat Ratio 25.2 RATIO (10-20); Calcium,Total 8.1 mg/dL (8.5-10.1); Chloride 109 mmol/L (98-107); Creatinine, Serum 1.47 mg/dL (0.70-1.30); EST Glomerular Filtration Rate 51 mL/min (>60); Est Glom Filt Rate - Afr Amer 61 mL/min (>60); Glucose 302 mg/dL (74-106); Sodium Level 141 mmol/L (136-145)
[2024-09-25] MEDS: Metoprolol Tartrate 25 MG Tablet PO ×2 (10:21→22:28)
[2024-09-25] MEDS: amLODIPine 5 MG Tablet PO (10:21)
[2024-09-25] MEDS: Triamcinolone 0.5% Cream 1 APPLIC TOPICAL ×2 (10:21→22:33)
[2024-09-25] MEDS: Nystatin Powder 15gm Bottle 1 APPLIC TOPICAL ×2 (10:21→22:32)
[2024-09-25] MEDS: Ketoconazole Cream 1 APPLIC TOPICAL ×2 (10:22→22:32)
--- NOTE | 2024-09-25 11:14 | PN.HOSP_ITS ---
Subjective Subjective Remains confused and disoriented Objective Data Objective Data Vital Signs: Vital Signs Temp Pulse Resp BP Pulse Ox O2 Del Method O2 Flow Rate 97.4 F L 64 16 150/69 H 96 Room Air 2 09/25/24 10:13 09/25/24 10:21 09/25/24 10:13 09/25/24 10:21 09/25/24 10:13 09/25/24 10:13 09/23/24 06:00 Oxygen Flow Rate (L/min) 2 Oxygen Delivery Method Room Air Weight: 142 lb 6.698 oz Body Mass Index (BMI) 22.9 Intake & Output: Intake and Output for Last 24 Hours 09/24/24 09/25/24 09/26/24 03:59 03:59 03:59 Intake Total 935 / 935 1035 / 1035 100 / 100 Output Total 950 / 950 900 / 900 Balance -15 / -15 135 / 135 100 / 100 Medical Nutrition Assessment Dietitian: Malnutrition Criteria Met Start: 09/23/24 10:10 Freq: Status: Active Protocol: Document 09/23/24 10:10 SLA (Rec: 09/23/24 10:10 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 Rec 4 oz ensure plus high protein tid w/ meals once diet resumes for increased nutrition if consumed. Lab / Micro Data 09/25/24 07:22 09/25/24 07:22 Labs: Laboratory Results - last 24 hr 09/24/24 14:40: Vancomycin Trough Cancelled 09/24/24 15:55: TSH 1.380, Vancomycin Trough 10.6 09/25/24 07:22: WBC 10.0, RBC 3.93 L, Hgb 11.5 L, Hct 35.5 L, MCV 90.3, MCH 29.3, MCHC 32.4, RDW Std Deviation 50.9 H, RDW Coeff of Samuel 15.4 H, Plt Count 161, MPV 11.6, Immature Gran % (Auto) 1.300 H, Neut % (Auto) 70.6 H, Lymph % (Auto) 20.9, [place] % (Auto) 6.6, Eos % (Auto) 0.1, Baso % (Auto) 0.5, Absolute Neuts (auto) 7.0, Absolute Lymphs (auto) 2.09, Nucleated RBC % 0, Sodium 141, Potassium 4.0, Chloride 109 H, Carbon Dioxide 28.0, Anion Gap 5, BUN 37 H, C reatinine 1.47 H, Estim Creat Clear Calc 43.40, Est GFR (MDRD) Af Amer 61, Est GFR (MDRD) Non-Af 51 L, BUN/Creatinine Ratio 25.2 H, Glucose 302 H, Calcium 8.1 L Micro: Microbiology 09/22/24 14:20 Blood Culture (Wb) - Anticubital Left Blood Culture - Final GNR Poss Pseudomonas sp Coag Negative Staph 09/22/24 14:35 Blood Culture (Wb) - Anticubital Left Blood Culture - Final Pseudomonas aeruginosa 09/22/24 14:20 Urine, Clean Catch Urine Culture - Final Pseudomonas aeruginosa 09/23/24 02:55 Mucosa - Nasopharyngeal Respiratory Panel (PCR) - Final 09/23/24 02:55 Mucosa - Nasopharyngeal SARS-CoV-2, Influenza & RSV (PCR) - Final 09/22/24 14:20 Urine, Clean Catch Legionella Antigen - Final 09/22/24 14:20 Urine, Clean Catch Streptococcus pneumoniae Antigen (M - Final Radiography Diagnostic Testing: Radiology Impression Echocardiogram 09/24/24 14:53 Interpretation Summary The estimated ejection fraction is 65 %. No evidence for diastolic dysfunction. Trivial mitral valve insufficiency. Ordering Physician: Bossman Chambers Referring Physician: Samira Akers Performed By: Star Mathur RCS Physical Exam Narrative General: Alert, Oriented x1, No apparent distress, confused HEENT: Atraumatic, PERRLA, EOMI, Normocephalic Oral: Moist Mucosa Neck: Supple, No JVD Lungs: Diminished, Normal air movement, No rhonchi, No wheeze, No rales Cardiovascular: Regular rate and rhythm, normal S1, Normal S2, No murmurs Abdomen: Soft, Non Tender, Non-Distended, No Hepato-splenomegaly Extremities: No edema, Capillary Refill Less than 3 Seconds Skin: No rashes, No breakdown Musculoskeletal: No Tenderness to Palpation of Joints or Extremities Neurological: Cooperation is difficult, moves all extremities, no focal neurological deficits Psych/Mental Status: Flat Assessment & Plan Assessment/Plan (1) Sepsis: (2) Melanoma: PLAN: Plan # Concern for sepsis secondary to pseudomonal UTI with Pseudomonas bacteremia -Pansensitive Pseudomonas in urine -UA concerning for UTI chest x-ray also with patchy opacity at left lung base -Continue Zosyn -Sputum culture as well as COVID panel and respiratory panel are negative -Mucinex, I/S #Metastatic melanoma -Per patient's patient was found to have a new brain met last -He is on experimental chemo medication through [facility] -Awaiting transfer, will continue pts experimental med (pt documented as taking/ brought in trametinib 2mg daily) while awaiting transfer # Elevated liver function tests - Total bili 1.2, AST 287 with an ALT of 89 and alk phos 130 -No abdominal complaints and abdominal exam benign, given to other possible sources no CT scan of the abdomen obtained in the ED -Right upper quadrant ultrasound is pending # CKD 3 -Creatinine is now 1.[address] it has stayed that way so this is likely his baseline # Minimally displaced posterior lateral right sixth rib fracture -Lidocaine patch -Pain control -Incentive spirometer #New onset A-fib ? Received a dose digoxin overnight during his stay ?TSH is normal and echo was unremarkable ? Will continue him on metoprolol 25 mg p.o. twice daily DVT: SCDs Charges/Coding Visit Charges Inpatient E&M: 87976 Subs Hosp L2
--- NOTE | 2024-09-25 18:43 | NURSING ---
This RN spoke with Franco at the [facility] transfer center, who states that pt will most likely get a bed this evening. Vik JAMES
[2024-09-25] MEDS: 0.9% Saline Lock 10 ML Syringe IV (19:07)
[2024-09-25] MEDS: Vancomycin HCl 1,250 MG in 0.9% Normal Saline (250mL Bag) 250 ML 167 MG IV (19:08)
[2024-09-26 03:48] VITALS: BMI 24.3
[2024-09-26 05:39] VITALS: BP 159/79; PULSE 69; RESP 15; TEMP 36.5; O2SAT 98
[2024-09-26] MEDS: Piperacil/Tazobactam 3.375 GM in 0.9% Normal Saline (50mL MB+) 50 ML IV (05:41)
[2024-09-26 07:00] LABS: Absolute Lymphocyte Count 1.98 X10^3/uL (0.83-4.51); Basophil# 0.04 X10^3/uL; Basophil% 0.5 % (0-1); Eosinophil# 0.02 X10^3/uL; Eosinophils% 0.3 % (0-5); Hematocrit 36.3 % (40-54); Hemoglobin 12.1 g/dL (13.0-16.5); Lymphocyte # 1.98 X10^3/ul (0.83-4.51); Lymphocyte % 25.9 % (19-41); Mean Corp Hgb Conc 33.3 g/dL (32-36); Mean Corpuscular Hgb 29.5 pg (27.0-32.0); Mean Corpuscular Volume 88.5 fL (80-94); Mean Platelet Vol. 10.9 fl (6.2-12.0); Monocyte# 0.45 X10^3/uL; Monocyte% 5.9 % (0-10); NRBC Flagged by Analyzer 0 % (0-5); Neutrophil % 65.3 % (47-70); Platelet Count 162 K/mm3 (150-450); RBC Distribution Width CV 15.5 % (11.6-14.6); RBC Distribution Width SD 50.3 fl (35.1-43.9); White Blood Count 7.7 K/mm3 (4.4-11.0)
[2024-09-26 07:44] VITALS: BP 159/79; PULSE 69; RESP 15; TEMP 36.5; O2SAT 98
[2024-09-26 07:45] LABS: Anion Gap 4 (5-15); BUN 25 mg/dL (7-18); BUN/Creat Ratio 18.9 RATIO (10-20); Calcium,Total 8.5 mg/dL (8.5-10.1); Chloride 106 mmol/L (98-107); Creatinine, Serum 1.32 mg/dL (0.70-1.30); EST Glomerular Filtration Rate 57 mL/min (>60); Est Glom Filt Rate - Afr Amer 69 mL/min (>60); Estimated Creatinine Clearance 48.33 ml/min; Glucose 329 mg/dL (74-106); Sodium Level 139 mmol/L (136-145)
--- NOTE | 2024-09-26 17:40 | PCM.DC.SUM ---
Providers Date of Admission: 09/22/24 Primary Care Physician: TAWNYA Sotelo Consultations 09/23/24 06:09 Consult: Onc/Wound/automation application engineer Routine Comment: Reason for Consult:: presure wound coccyx, dry skin open areas Reason For Visit: SEPSIS Diagnosis Discharge Diagnosis (1) Melanoma: Status: Acute Code(s): C43.9 - Malignant melanoma of skin, unspecified (2) Sepsis: Status: Acute Code(s): A41.9 - Sepsis, unspecified organism Medications at Discharge Home Medications tramadol 50 mg tablet 50 mg PO Q6H PRN pain 3 days #12 tabs 09/17/22 ciprofloxacin HCl 500 mg tablet (Cipro) 500 mg PO BID 7 days #14 tabs 11/20/23 amlodipine 5 mg tablet 5 mg PO DAILY 09/22/24 trametinib 0.5 mg tablet (Mekinist) 2 mg PO DAILY 09/22/24 Hospital Course Operations None Procedures 2-D Echocardiogram Summary of Care Provided Minutes Spent on Discharge: 31 Hospital Course: Per HPI: IDALIA ROACH, is a 68-year-old male history of hypertension and metastatic melanoma with metastasis to the brain currently on experimental chemo medication through the [facility] facility presented [facility] ED 09/22/2024 with generalized weakness and increasing confusion. at bedside told ED provider that patient has been more confused and weak over the past couple of days and has not been eating or drinking well. Today he tried to get out of his recliner and slid down. In triage he is having visual hallucinations. In the ED blood pressure 151/97 with heart rate of 101, patient afebrile and 100% saturation on room air w/ RR of 22. He is found to have a white blood cell count of 24.2 with left shift. BUN of 32 with creatinine of 1.63, no baseline available in our system. Total bili 1.2, AST 287 with an ALT of 89 and alk phos 130. Lactic acid 2.6. Troponin 74. Chest x-ray showed minimally displaced posterior lateral right sixth rib fracture and patchy opacity left lung base. UA suspicious for UTI. Patient diagnosed with sepsis and bolused with 2 L IV fluids and given broad-spectrum antibiotics. Hospitalist contacted for admission. Evaluated patient with at bedside, patient was found to have a new metastatic lesion to his brain last per and up until a couple of months ago had been undergoing gamma knife radiation to his brain. He follows with [facility] and is on an experimental chemotherapy drug that he is still actively taking, she has the medicine at bedside. Patient has had worsening of his imbalance and worsening mental status. It is certainly possible that this is all due to underlying infection/sepsis however patient also medically complex with new brain lesion with metastatic melanoma on an experimental chemo medication and follows exclusively with the [facility] with all of his records through the [facility] and it is felt that patient would be more appropriate at a tertiary facility ideally through the [facility] system given that is where he gets his experimental chemo through. This was communicated to ED provider initiated transfer to [facility]. Given prolonged wait hospitalist contacted for admission. Upon initial evaluation patient's reports he has had more imbalance and has been more altered over the past couple of days and has had increased weakness, patient had difficulty with any specific ROS given his mental status but the generalized weakness and altered mental status are the primary concerns. Hospital Course: # Concern for sepsis secondary to pseudomonal UTI with Pseudomonas bacteremia as well as metabolic encephalopathy -Pansensitive Pseudomonas in urine -UA concerning for UTI chest x-ray also with patchy opacity at left lung base -Continue Zosyn -Sputum culture as well as COVID panel and respiratory panel are negative -Mucinex, I/S 09/26/2024: Continue with Pseudomonas coverage with Zosyn on transfer to [facility] #Metastatic melanoma -Per patient's patient was found to have a new brain met last -He is on experimental chemo medication through [facility] -Awaiting transfer, will continue pts experimental med (pt documented as taking/ brought in trametinib 2mg daily) while awaiting transfer 09/26/2024: Was post to be discharged yesterday however transportation was delayed until this morning. He was discharged to [facility] # Elevated liver function tests - Total bili 1.2, AST 287 with an ALT of 89 and alk phos 130 -No abdominal complaints and abdominal exam benign, given to other possible sources no CT scan of the abdomen obtained in the ED -Right upper quadrant ultrasound is pending # CKD 3 -Creatinine is now 1.4 and it has stayed that way so this is likely his baseline # Minimally displaced posterior lateral right sixth rib fracture -Lidocaine patch -Pain control -Incentive spirometer #New onset A-fib ? Received a dose digoxin overnight during his stay ?TSH is normal and echo was unremarkable ? Will continue him on metoprolol 25 mg p.o. twice daily Weight / BMI Weight Weight: 150 lb 5.684 oz Body Mass Index (BMI) 24.3 ABG / Lab / Microbiology Data 09/26/24 06:12 09/26/24 06:12 Laboratory: Laboratory Results - last 24 hr 09/26/24 06:12: WBC 7.7, RBC 4.10 L, Hgb 12.1 L, Hct 36.3 L, MCV 88.5, MCH 29.5, MCHC 33.3, RDW Std Deviation 50.3 H, RDW Coeff of Samuel 15.5 H, Plt Count 162, MPV 10.9, Immature Gran % (Auto) 2.100 H, Neut % (Auto) 65.3, Lymph % (Auto) 25.9, Simpson % (Auto) 5.9, Eos % (Auto) 0.3, Baso % (Auto) 0.5, Absolute Neuts (auto) 5.0, Absolute Lymphs (auto) 1.98, Nucleated RBC % 0, Sodium 139, Potassium 4.0, Chloride 106, Carbon Dioxide 30.0, Anion Gap 4 L, BUN 25 H, Creatinine 1.32 H, Estim Creat Clear Calc 48.33, Est GFR (MDRD) Af Amer 69, Est GFR (MDRD) Non-Af 57 L, BUN/Creatinine Ratio 18.9, Glucose 329 H, Calcium 8.5 Microbiology: Microbiology 09/25/24 22:32 Sputum, Expectorated/Coughed Gram Stain - Final 09/22/24 14:20 Blood Culture (Wb) - Anticubital Left Blood Culture - Final GNR Poss Pseudomonas sp Coag Negative Staph 09/22/24 14:35 Blood Culture (Wb) - Anticubital Left Blood Culture - Final Pseudomonas aeruginosa 09/22/24 14:20 Urine, Clean Catch Urine Culture - Final Pseudomonas aeruginosa 09/23/24 02:55 Mucosa - Nasopharyngeal Respiratory Panel (PCR) - Final 09/23/24 02:55 Mucosa - Nasopharyngeal SARS-CoV-2, Influenza & RSV (PCR) - Final 09/22/24 14:20 Urine, Clean Catch Legionella Antigen - Final 09/22/24 14:20 Urine, Clean Catch Streptococcus pneumoniae Antigen (M - Final Radiography Diagnostic Testing: Radiology Impression Brain CT 09/22/24 12:38 IMPRESSION: No CT evidence of acute intracranial pathology. Reading Location: [facility] Cervical Spine CT 09/22/24 12:38 IMPRESSION: No acute CT process in the cervical spine. One or more dose reduction techniques were used (e.g., Automated exposure control, adjustment of the mA and/or kV according to patient size, use of iterative reconstruction technique). Reading Location: [facility] Chest X-Ray 09/22/24 12:38 IMPRESSION: As above. Reading Location: [facility] Hip/Pelvis X-Ray 09/22/24 12:38 IMPRESSION: No acute radiographic process. Reading Location: [facility] Abdomen Ultrasound 09/23/24 06:30 IMPRESSION: NORMAL RIGHT UPPER QUADRANT ULTRASOUND. Reading Location: [facility] Echocardiogram 09/24/24 14:53 Interpretation Summary The estimated ejection fraction is 65 %. No evidence for diastolic dysfunction. Trivial mitral valve insufficiency. Ordering Physician: Bossman Chambers Referring Physician: Samira Akers Performed By: Star Mathur RCS D/C Instructions DC O2, CPAP, BIPAP Needs Home O2 Discharge instructions: No Meaningful Use Info Meaningful Use Meaningful Use Diagnoses (Choose all that apply): None applicable Ischemic Stroke Statin Dosing Therapy Reference: STATIN DOSE THERAPY REFERENCE: * Patients > 75 years receive moderate or high dose statin therapy. * Patients 75 years or YOUNGER should receive HIGH intensity statin dose unless contraindicated. You will be required to document reason for non-treatment if statin daily dose does not meet guidelines. HIGH DOSE STATIN THERAPY DAILY Atorvastatin > than or = to 40 mg Rosuvastatin > than or = to 20 mg Amlodipine + Atorvastatin > than or = to 2.5/40 mg Ezetimibe + Simvastatin 10/80 mg Simvastatin 80mg Discharge Plan Admission Admit Date/Time: 09/22/24 21:10 Attending Provider: Bossman Chambers Primary Care Provider: Samira Akers NP Consulting Providers: Louise Morillo Discharge Orders/Prescriptions Prescriptions: No Action tramadol 50 MG tablet 50 mg PO Q6H PRN (Reason: pain) 3 Days Qty: 12 0RF ciprofloxacin HCl [Cipro] 500 mg tablet 500 mg PO BID 7 Days Qty: 14 0RF amlodipine 5 mg tablet 5 mg PO DAILY Mekinist 0.5 mg tablet 2 mg PO DAILY Rx Instructions: must be taken on empty stomach, at least 1 hr before or 2-3 hrs after meal/food Referrals / Follow Up: Samira Akers TAPE CUTTING MACHINE OPERATOR, TAPE CUTTING MACHINE OPERATOR-C [Primary Care Provider] - Disposition Disposition (needs filled in before D/C Order can be placed): DC/Tx to Another Type of HCF Charges/Coding Visit Charges Inpatient E&M: 13277 Disch Hosp >30min
== END 2024-09-26 07:36 | disposition other institution (70) | DRG 871 ==
LOC: ED 15:07 → ICU 20:08 → PCU 09-24 06:53
PROVIDERS: Internal Medicine; Admitting Provider Internal Medicine; Emergency Provider Emergency Medicine; PCP Clinical Nurse Specialist; Visit Provider Family Medicine
DX: A41.52 Sepsis due to Pseudomonas (principal); E43 Unspecified severe protein-calorie malnutrition; G93.41 Metabolic encephalopathy; C79.31 Secondary malignant neoplasm of brain; S22.31XA Fracture of one rib, right side, initial encounter for closed fracture; N39.0 Urinary tract infection, site not specified; L89.159 Pressure ulcer of sacral region, unspecified stage; C43.9 Malignant melanoma of skin, unspecified; I12.9 Hypertensive chronic kidney disease with stage 1 through stage 4 chronic kidney disease, or unspecified chronic kidney disease; B35.6 Tinea cruris; N18.30 Chronic kidney disease, stage 3 unspecified; I48.91 Unspecified atrial fibrillation; R91.8 Other nonspecific abnormal finding of lung field; R74.8 Abnormal levels of other serum enzymes; X58.XXXA Exposure to other specified factors, initial encounter; Z79.899 Other long term (current) drug therapy; Z68.24 Body mass index [BMI] 24.0-24.9, adult
CPT/HCPCS: 36415; 70450; 71045; 72125; 73502; 76705; 80048; 80053; 80202; 81001; 82436; 82570; 83605; 83690; 83735; 84100; 84133; 84300; 84443; 84484; 84540; 85025; 87040; 87070; 87077; 87086; 87088; 87184; 87186; 87205; 87449; 87631; 87633; 93005; 93306; 94762; 97116; 97162; 97166; 97530; 97802; 99285; Q9957; A4216

== ENCOUNTER 2024-10-23 10:03 | Inpatient (IN) | payer MEDICARE, SELFPAY ==
[2024-10-23] VITALS (11 sets, daily range): BP systolic 90–126; BP diastolic 56–81; PULSE 70–90; RESP 16–19; TEMP 36.4–36.8; O2SAT 96–100; BMI 21.0; BMI 19.5
--- NOTE | 2024-10-23 10:41 | CT_ITS ---
PROCEDURE: SPINE THORACIC WITHOUT CONTRAS REASON FOR EXAM: PAIN TECHNIQUE: Noncontrast thoracic CT performed. Axial and coronal reconstructions. COMPARISON: None. FINDINGS: Alignment: Mild scoliosis Bones: Normal thoracic vertebral heights. No acute fracture. No suspicious lytic or blastic lesion. Moderate thoracic arch calcification. Small sliding hiatal hernia. 1 cm right lower lobe nodule. Please see chest CT CT/Spine Thoracic without Contras IMPRESSION: No findings of acute thoracic spine fracture. Right lower lobe nodule. Please see chest CT. One or more dose reduction techniques were used (e.g., Automated exposure contr ol, adjustment of the mA and/or kV according to patient size, use of iterative reconstruction technique). Reading Location: [id number]
--- NOTE | 2024-10-23 10:42 | CT_ITS ---
EXAM: BRAIN/HEAD WITHOUT CONTRAST CLINICAL HISTORY: TRAUMA COMPARISON: 09/22/2024 and 17 September 2022 TECHNIQUE: Noncontrast CT head performed. Axial and coronal reconstructions added. FINDINGS: There is no evidence of acute hemorrhage. Paranasal sinuses and mastoids are clear. Global volume loss and moderate chronic small-vessel ischemic change. No midline shift There does appear to be somewhat geographic subcortical low-attenuation in the high right parietal lobe. This is somewhat atypical for remote ischemia. Underlying edema from mass not excluded. If this has not been evaluated previously, consider contrast-enhanced MRI brain CT/Brain/Head without Contrast IMPRESSION: Global volume loss and chronic small vessel ischemic change. No evidence of ac carissa hemorrhage. Somewhat geographic low attenuation seen in the right parietal lobe for which e randy not excluded. If this has not been previously evaluated, consider contrast-enhanced brain MRI to exclude underlyin g mass lesion. This has not change from most recent examination but does appear to be new from 2022. Reading Location: [facility]
--- NOTE | 2024-10-23 10:42 | CT_ITS ---
PROCEDURE: SPINE CERVICAL WITHOUT CONTRAS REASON FOR EXAM: TRAUMA TECHNIQUE: Cervical spine CT without contrast. COMPARISON: 09/22/2024 FINDINGS: Features of diffuse idiopathic skeletal hyperostosis with bulky anterior bridging osteophytes. No evidence of acute cervical spine fracture. There is a similar appearance to prior exam. Prevertebral soft tissues within normal limits. CT/Spine Cervical without Contras IMPRESSION: Stable examination. No findings of acute cervical spine fracture. One or more dose reduction techniques were used (e.g., Automated exposure contr ol, adjustment of the mA and/or kV according to patient size, use of iterative reconstruction technique). Reading Location: [id number]
--- NOTE | 2024-10-23 11:07 | EDS_ITS ---
HPI HPI - Fall History of Present Illness Chief Complaint: Fall Narrative Narrative: Chief complaint and HPI: Mechanical fall. 69-year-old male with known metastatic melanoma to the brain, lung, brain presents for evaluation after mechanical fall. History is limited by patient. Patient states that he has had frequent falls due to loss of balance. He states that he lost his balance in the bedroom today in which he fell onto the carpet. Denies LOC. Girlfriend was unable to help the patient off the floor and therefore EMS was called. Patient endorsing neck pain and thoracic back pain. Patient endorses that he is a poor historian and therefore asked me to call his girlfriend Kaitlin. I spoke with Kaitlin patient has a history of metastatic melanoma. He has received gamma knife for the past 2 years to the brain without improvement. He was started on a clinical trial but this was ended 5 weeks ago due to side effects and no improvement. He is currently in hospice. Kaitlin states that the patient has fallen approximately 4 times in the last 2 days. She states that she is unable to care for him at home. She states she would like him placed in a hospice center which he agrees to. Patient denies any fever, chills, shortness of breath, chest pain abdominal pain, nausea, vomiting, dysuria. Patient not on blood thinners. Review of systems: See HPI Medications: As listed on the chart Allergies: As listed on the chart PFSH: Per chart Vital signs: As listed on the chart. Reviewed. Physical exam: Gen: A&O x3 but confused about detail-baseline per Kaitlin since his metastatic cancer to the brain, NAD Head: Normocephalic, atraumatic Eyes: No sclera icterus, conjunctiva clear, PERRL, EOMI ENT: TMs clear BL, moist mucous membranes, no swelling/lacerations/blood in the mouth or the nares, No nasal septal hematoma, no facial tenderness Neck: Trachea midline, c-collar CV: RRR, no murmurs, mild tenderness to palpation of the left anterior ribs- patient states he has known cancer in this area but was not hurting prior Resp: Lungs CTA BL, no w/r/c GI: Abd soft, non-distended, non-tender, no r/r/g Musc: Moves all extremities with generalized weakness, no deformity, no spinal TTP, no wendi step-offs, tender to palpation of the paraspinal musculature of the thoracic spine Skin: Warm, dry, intact Neuro: Alert, oriented, grossly intact, sensation intact Psych: Cooperative, appropriate mood and affect [facility] Medical History Hypertension Melanoma Home Medications ?Medication ?Instructions ?Recorded ?Last Taken ?Type tramadol 50 mg tablet 50 mg PO Q6H PRN pain 3 days #12 09/17/22 Unknown Rx tabs ciprofloxacin HCl 500 mg tablet 500 mg PO BID 7 days # 14 tabs 11/20/23 Unknown Rx (Cipro) amlodipine 5 mg tablet 5 mg PO DAILY 09/22/24 Unkno wn History trametinib 0.5 mg tablet (Mekinist) 2 mg PO DAILY 05/08 Unknown History lorazepam 0.5 mg tablet 0.5 mg PO Q4H PRN PRN anxiet y 10/23/24 Unknown History oxycodone 5 mg tablet 2.5 mg PO Q4H PRN PRN pain 0 10/23/24 Unknown History trazodone 50 mg tablet 25 mg PO QHS insomnia Unknown History Allergy/AdvReac Type Severity Reaction Status Date / Time No Known Allergies Allergy Verified 09/26/24 05:30 Social History (System 09/26/24 @ 05:30 by Adrianne Livingston) Smoking Status: Never smoker EXAM Physical Exam Const Vital Signs: 10/23/24 10:03 10/23/24 12:00 10/23/24 14:00 Temperature 97.5 F L Temperature Source Oral Pulse Rate 90 77 Respiratory Rate 16 Respiratory Effort Respiratory Depth Respiratory Pattern Blood Pressure 126/76 H 108/63 90/62 Blood Pressure Mean 92 78 72 Pulse Ox 98 96 99 Oxygen Delivery Method Room Air 10/23/24 14:43 10/23/24 16:00 10/23/24 16:00 Temperature Temperature Source Pulse Rate 74 Respiratory Rate Respiratory Effort Normal Non-Labored Respiratory Depth Normal Respiratory Pattern Normal Blood Pressure 104/65 103/67 Blood Pressure Mean 78 79 Pulse Ox 98 99 Oxygen Delivery Method MDM MDM MDM Narrative Medical decision making narrative: 69-year-old male with known metastatic melanoma to the brain, lung, brain presents for evaluation after mechanical fall. Patient is on hospice. Kaitlin is POA. Differential diagnosis includes but is not limited to worsening metastatic cancer, fracture, contusion. Given that patient is on hospice Kaitlin declined laboratory workup. Kaitlin states she sent him here to to rule out any acute injury. Patient states that he defers to Kaitlin for management. Plan is to get patient placed at hospice center. I do think this is appropriate. Social work consulted and working on placement. [place] ordered for pain. CT head, chest, thoracic spine, neck ordered to assess for injury. All imaging is negative for acute traumatic injury. Patient is known malignancy/metastatic disease is present. Social work spoke with Kaitlin. She is now requesting to revoke hospice and send the patient to a skilled facility. I spoke with Kaitlin on the phone again. She states that she is revoking hospice because she was told by social media community manager that patient will have to pay [id number] but qualifies for skilled. I did explain to her if she is revoking hospice and would like patient treated medically or cleared for penitentiary that I would need to order at least basic labs and UA. I did advise the POA to have the patient remain on hospice. However she is revoking hospice and confirmed understanding and consented for further workup. CBC, CMP, UA ordered. CBC without leukocytosis. Patient has baseline anemia. CMP shows baseline renal insufficiency. UA is positive for UTI. Urine culture sent. Rocephin ordered. After Rocephin was ordered, on chart review, patient was just treated in our hospital and discharged on 09/26 for sepsis secondary to Pseudomonas UTI and Pseudomonas bacteremia as well as metabolic encephalopathy. It is sensitive to Levaquin. Levaquin ordered. Blood cultures obtained. Patient is not medically cleared for skilled facility. He will warrant admission. I spoke with the hospitalist service, Dr. Montoya. She would like to speak with social work before accepting admission. Social work unable to be contacted. Dr. Montoya requesting patient's on hospice be contacted prior to admission. I spoke with Kaitlin patient follows with [facility] and was started. She states that if patient can get a hospice bed that does not require [id number] pay. She will go back on hospice. Hospice line contacted at [phone]. They will send someone to evaluate the patient for inpatient hospice center. Dr. Montoya updated. Patient signed out to oncoming physician, Dr. Montoya. He will wait to the hospice evaluation. Plan will be to either discharge to hospice inpatient facility or admission. EKG: Interpreted by me/EM physician: EKG shows normal sinus rhythm with known incomplete right bundle riddhi block. Heart rate 76. Impression: 1. Frequent falls 2. UTI 3. Neck, chest, back contusion 4. History of metastatic melanoma of the brain, chest, groin, lymph nodes Lab Data Labs: Laboratory Results - last 24 hr 10/23/24 10/23/24 15:33 15:40 WBC 8.8 RBC 3.36 L Hgb 9.8 L Hct 31.0 L MCV 92.3 MCH 29.2 MCHC 31.6 L RDW Std Deviation 49.7 H RDW Coeff of Samuel 14.7 H Plt Count 200 MPV 10.2 Immature Gran % (Auto) 1.500 H Neut % (Auto) 46.4 L Lymph % (Auto) 41.3 H [place] % (Auto) 7.9 Eos % (Auto) 2.2 Baso % (Auto) 0.7 Absolute Neuts (auto) 4.1 Absolute Lymphs (auto) 3.61 Nucleated RBC % 0 Sodium 139 Potassium 5.0 Chloride 104 Carbon Dioxide 27.1 Anion Gap 8 BUN 23 H Creatinine 1.26 H Estim Creat Clear Calc 46.25 L Est GFR (MDRD) Non-Af 62 BUN/Creatinine Ratio 18.3 Glucose 95 Calcium 8.5 Total Bilirubin 0.42 AST 20 ALT 16 Alkaline Phosphatase 88 Total Protein 6.3 Albumin 2.9 L Globulin 3.4 Albumin/Globulin Ratio 0.8 L Urine Color Yellow Urine Clarity Cloudy Urine pH 6.0 Ur Specific [place] 1.015 Urine Protein 100 H Urine Glucose (UA) Normal Urine Ketones 15 H Urine Occult Blood 250 H Urine Nitrite Positive H Urine Bilirubin Negative Urine Urobilinogen Normal Ur Leukocyte Esterase 500 H Urine RBC > 100 SEEN Urine WBC >100 SEEN Ur Squamous Epith Cells 0 SEEN Urine Bacteria 1+ Urine Mucus 0 SEEN Radiography Diagnostic Testing: Clinical Impression(s) from Imaging Studies Thoracic Spine CT 10/23/24 10:41 IMPRESSION: No findings of acute thoracic spine fracture. Right lower lobe nodule. Please see chest CT. One or more dose reduction techniques were used (e.g., Automated exposure control, adjustment of the mA and/or kV according to patient size, use of iterative reconstruction technique). Reading Location: [facility] Brain CT 10/23/24 10:42 IMPRESSION: Global volume loss and chronic small vessel ischemic change. No evidence of acute hemorrhage. Somewhat geographic low attenuation seen in the right parietal lobe for which edema not excluded. If this has not been previously evaluated, consider contrast-enhanced brain MRI to exclude underlying mass lesion. This has not change from most recent examination but does appear to be new from 2022. Reading Location: [facility] Cervical Spine CT 10/23/24 10:42 IMPRESSION: Stable examination. No findings of acute cervical spine fracture. One or more dose reduction techniques were used (e.g., Automated exposure control, adjustment of the mA and/or kV according to patient size, use of iterative reconstruction technique). Reading Location: [facility] Chest CT 10/23/24 11:45 IMPRESSION: No acute traumatic findings. There is however pulmonary nodularity. Malignancy or metastatic disease needs to be excluded. Robust coronary calcification. Mild vascular calcification. Reading Location: [facility] Discharge Plan Triage Chief Complaint: Fall ED Provider: Star Dillard Dx/Rx/DC Orders Prescriptions: No Action tramadol 50 MG tablet 50 mg PO Q6H PRN (Reason: pain) 3 Days Qty: 12 0RF ciprofloxacin HCl [Cipro] 500 mg tablet 500 mg PO BID 7 Days Qty: 14 0RF amlodipine 5 mg tablet 5 mg PO DAILY Mekinist 0.5 mg tablet 2 mg PO DAILY Rx Instructions: must be taken on empty stomach, at least 1 hr before or 2-3 hrs after meal/food lorazepam 0.5 mg tablet 0.5 mg PO Q4H PRN PRN (Reason: anxiety) oxycodone 5 mg tablet 2.5 mg PO Q4H PRN PRN (Reason: pain) trazodone 50 mg tablet 25 mg PO QHS Primary Care Provider: Samira Akers NP Referrals: Samira Akers BODY TRIMMER, BODY TRIMMER-C [Primary Care Provider] - Print Language: Kyrgyz
[2024-10-23] MEDS: HYDROcodone Bitartrate/Apap 5/325 Tablet PO (11:23)
--- NOTE | 2024-10-23 11:45 | CT_ITS ---
PROCEDURE: CHEST WITHOUT CONTRAST REASON FOR EXAM: PAIN TECHNIQUE: Chest CT without contrast. COMPARISON: None. FINDINGS: 1.2 cm right lower lobe nodule. 8 mm left upper lobe nodule. 3 mm right upper lobe nodule. Robust coronary calcification. Ascending aorta measures 3.8 cm. Bronchial thickening. Patchy bibasilar atelectasis. No pneumothorax. No pleural effusion Splenomegaly. Hepatic steatosis. Small sliding hiatal hernia. CT/Chest without Contrast IMPRESSION: No acute traumatic findings. There is however pulmonary nodularity. Malignanc y or metastatic disease needs to be excluded. Robust coronary calcification. Mild vascular calcification. Reading Location: [id number]
--- NOTE | 2024-10-23 11:49 | CM.ED ---
Social Work SW spoke with patient who stated he was unable to continue living at home. Patient states that he has been living with his significant other but she is no longer able to care for him. SW contacted significant other who confirms that she is unable to provide the care that patient needs at this time. Both significant other and patient are requesting that patient be admitted to the [facility] is able. SW contacted [facility] to request patient be assessed for their inpatient unit. SW left message with María at [facility], María stated she would have someone from his care team call back. Iwona Mccormack, BUSINESS RISK ANALYST, VEHICLE MONITOR TECHNICIAN
--- NOTE | 2024-10-23 13:09 | CM.ED ---
Social Work BETTY received call from Dominique at [facility]. Dominique informed BETTY that significant other is interested in patient going to [facility] under his part A benefit. Dominique let BETTY know that she is working with [facility] and will update BETTY when she has more information. Iwona Mccormack, WILDLIFE ECOLOGY PROFESSOR, BUSINESS OPERATIONS COORDINATOR
--- NOTE | 2024-10-23 15:21 | EKG12_ITS ---
Test Reason : Blood Pressure : */* mmHG Vent. Rate : 76 BPM Atrial Rate : 76 BPM P-R Int : 158 ms QRS Dur : 118 ms QT Int : 422 ms P-R-T Axes : 40 16 20 degrees QTcB Int : 474 ms Normal sinus rhythm Incomplete right bundle branch block Borderline ECG Confirmed by HELEN WHITEHEAD, EDE ([id number]), commissioning editor SHARONDA MOBLEY ([id number]) on 10/28/2024 10:58:15 AM Referred By: KEL Confirmed By: EDE CERVANTES MD
[2024-10-23 15:42] LABS: Absolute Lymphocyte Count 3.61 X10^3/uL (0.83-4.51); Absolute Neutrophil Count 4.1 X10^3/uL (2.0-7.7); Basophil# 0.06 X10^3/uL; Basophil% 0.7 % (0-1); Eosinophil# 0.19 X10^3/uL; Eosinophils% 2.2 % (0-5); Hemoglobin 9.8 g/dL (13.0-16.5); Lymphocyte # 3.61 X10^3/ul (0.83-4.51); Lymphocyte % 41.3 % (19-41); Mean Corp Hgb Conc 31.6 g/dL (32-36); Mean Corpuscular Hgb 29.2 pg (27.0-32.0); Mean Corpuscular Volume 92.3 fL (80-94); Mean Platelet Vol. 10.2 fl (6.2-12.0); Monocyte# 0.69 X10^3/uL; Monocyte% 7.9 % (0-10); NRBC Flagged by Analyzer 0 % (0-5); Neutrophil # 4.07 X10^3/uL (2.7-7.7); Neutrophil % 46.4 % (47-70); Platelet Count 200 K/mm3 (150-450); RBC Distribution Width CV 14.7 % (11.6-14.6); RBC Distribution Width SD 49.7 fl (35.1-43.9); Red Blood Count 3.36 M/mm3 (4.6-6.2); White Blood Count 8.8 K/mm3 (4.4-11.0)
[2024-10-23 15:45] LABS: Mucous, Urine 0 SEEN /hpf (<or=2+); Squamous Epithelial Cells - UA 0 SEEN /hpf (0-5)
[2024-10-23 15:50] LABS: Color, Urine Yellow (Yellow); Glucose, Dipstick Normal (Normal); Ketone-Dipstick 15 mg/dl (Negative); Leukocyte Esterase-Dipstick 500 /ul (Negative); Nitrite-Dipstick Positive (Negative); Occult Blood-Urine 250 /ul (Negative); Protein-Dipstick 100 mg/dl (Negative); Specific Gravity, Urine 1.015 (1.002-1.030); Urine Bilirubin Dipstick Negative (Negative); Urine Clarity Cloudy (Clear); Urine Urobilinogen Normal (Normal)
[2024-10-23 16:34] LABS: Red Blood Cells-Urine > 100 SEEN /hpf (0-5); White Blood Cells >100 SEEN /hpf (0-5)
[2024-10-23 16:37] LABS: Bacteria 1+ /hpf (None Seen)
[2024-10-23 16:47] LABS: ALB/GLOB Ratio 0.8 RATIO (0.9-2.4); AST(SGOT) 20 U/L (<=37); Alanine Aminotransfer ALT/SGPT 16 U/L (<=46); Albumin, Serum 2.9 g/dL (3.4-4.8); Alkaline Phosphatase 88 U/L (40-129); Anion Gap 8 (5-15); BUN 23 mg/dL (4-19); BUN/Creat Ratio 18.3 RATIO (10-20); Calcium,Total 8.5 mg/dL (7.6-11.0); Carbon Dioxide 27.1 mmol/L (21.0-32.0); Chloride 104 mmol/L (98-108); Creatinine, Serum 1.26 mg/dL (0.70-1.20); EST Glomerular Filtration Rate 62 (>60); Estimated Creatinine Clearance 46.25 ml/min (50-250); Globulin 3.4 g/dL (2.2-4.2); Glucose 95 mg/dL (70-99); Protein, Total 6.3 g/dL (5.9-8.4); Sodium Level 139 mmol/L (133-145); Total Bilirubin 0.42 mg/dL (0.00-1.30)
[2024-10-23] MEDS: 0.9% Normal Saline (1000mL) 1,000 ML 1000 ML IV (16:59)
[2024-10-23] MEDS: Ceftriaxone 1 GM/50 ML BAG IV (17:00)
[2024-10-23] MEDS: levoFLOXacin IV 750 MG/150 ML BAG 100 MG IV (18:03)
[2024-10-23 18:52] LABS: Ferritin 986 ng/mL (37-417); Iron 30 ug/dL (65-175); Iron Binding Capacity,Unsat 136 ug/dL (228-428)
[2024-10-23 19:31] LABS: Iron Binding Capacity,Total 166 ug/dL (250-450)
[2024-10-23] MEDS: oxyCODONE 5 MG Tablet 2.5 MG PO (21:36)
--- NOTE | 2024-10-23 21:37 | HP.PCM.HOS_ITS ---
[facility] - General General Date of Admission: 10/23/24 Date of Service: 10/23/24 Chief Complaint: Fall. HPI Narrative SEAMUS BACA, is a 69 M with a past medical history of essential hypertension; on amlodipine, history of hypothyroidism; not on treatment, history of depression; on trazodone q. 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 Mr. Baca is not a fully-reliable historian at this time so information was gathered from chart, medical staff and computer. According to the records he has frequent falls attributed to loss of balance in the past and earlier today he lost his balance in his bedroom and fell onto the carpet. There was no report of loss of consciousness or significant head injury. The patient's girlfriend and helped him off the floor and then activated EMS. Mr. Baca complained of neck pain and thoracic back pain and his family and caregivers stated to the ER physician they were unable to care for him at home. Hospice personnel was called to evaluate patient and they are recommending patient be admitted to the hospital and discharged to hospice facility in a.m. when they take patient's and then they will resume care at that time. There is no report of fever, chills, nausea, vomiting, abdominal pain, chest pain, shortness of breath or headache. In the ER he was noted to have a UA gross positive for Acute Cystitis; with hematuria complicated by clinical evidence of Metabolic Encephalopathy after recent Mechanical Fall with CT scans of cervical spine and thoracic spine negative for acute pathologic findings in the setting of known metastatic melanoma with grave prognosis already on hospice. He was then admitted to the general medical floor for ongoing care for stay that is expected to extend beyond 2 midnights. [facility] Medical History Anxiety Depression Hypothyroidism Non-smoker HTN (hypertension) Melanoma Hypertension Melanoma Home Medications ?Medication ?Instructions ?Recorded ?Last Taken ?Type tramadol 50 mg tablet 50 mg PO Q6H PRN pain 3 days #12 09/17/22 Unknown Rx tabs ciprofloxacin HCl 500 mg tablet 500 mg PO BID atb 7 da ys #14 tabs 11/20/23 Unknown Rx (Cipro) amlodipine 5 mg tablet 5 mg PO DAILY bp 09/22/24 Un known History trametinib 0.5 mg tablet (Mekinist) 2 mg PO DAILY 05/08 Unknown History lorazepam 0.5 mg tablet 0.5 mg PO Q4H PRN PRN anxiet y 10/23/24 Unknown History oxycodone 5 mg tablet 2.5 mg PO Q4H PRN PRN pain 0 10/23/24 Unknown History trazodone 50 mg tablet 25 mg PO QHS insomnia Unknown History Allergy/AdvReac Type Severity Reaction Status Date / Time No Known Allergies Allergy Verified 09/26/24 05:30 Social History Smoking Status: Never smoker ROS ROS Narrative Full review of systems was not possible due to patient's metabolic encephalopathy. Vital Signs Vital Signs Vital Signs: 10/23/24 10:03 10/23/24 12:00 10/23/24 14:00 Temperature 97.5 F L Temperature Source Oral Pulse Rate 90 77 Respiratory Rate 16 Respiratory Effort Respiratory Depth Respiratory Pattern Blood Pressure 126/76 H 108/63 90/62 Blood Pressure Mean 92 78 72 Pulse Ox 98 96 99 Oxygen Delivery Method Room Air 10/23/24 14:43 10/23/24 16:00 10/23/24 16:00 Temperature Temperature Source Pulse Rate 74 Respiratory Rate Respiratory Effort Normal Non-Labored Respiratory Depth Normal Respiratory Pattern Normal Blood Pressure 104/65 103/67 Blood Pressure Mean 78 79 Pulse Ox 98 99 Oxygen Delivery Method 10/23/24 17:00 10/23/24 18:00 10/23/24 20:00 Temperature Temperature Source Pulse Rate 75 74 Respiratory Rate 18 17 Respiratory Effort Respiratory Depth Respiratory Pattern Blood Pressure 118/62 114/81 H 108/75 Blood Pressure Mean 80 91 86 Pulse Ox 99 98 97 Oxygen Delivery Method Room Air Weight Weight: 130 lb 4.691 oz Body Mass Index (BMI) 21.0 Physical Exam Const alert, no apparent distress and average body habitus Constitutional Narrative: Patient is confused and appears chronically ill. General Appearance: cooperative Orientation / Consciousness: confused HEENT normocephalic, head/scalp atraumatic, hearing grossly normal bilaterally and moist oral mucous membranes Eyes PERRL and EOMs intact bilaterally Neck no lymphadenopathy and supple Resp normal respiratory effort, no retractions, no use of accessory muscles and clear to auscultation bilaterally Cardio regular rate and regular rhythm GI normal to inspection, nondistended, normoactive bowel sounds, soft to palpation, non-tender and non-distended Extremity normal to inspection, full ROM and no clubbing, cyanosis or edema Skin Skin Narrative: Patient has no evidence of rash, abscess, wounds or jaundice. Neuro CN's II-XII intact bilaterally, moves all extremities and no focal motor deficits Sensorium / Orientation: awake, alert, oriented to person and oriented to place Speech: speech normal Psych affect normal Results Medical Records Data Attestation: I reviewed the patient's medical records Lab / Micro Data Attestation: I reviewed the patient's lab results. 10/23/24 15:33 10/23/24 15:33 Labs: Laboratory Results - last 24 hr 10/23/24 15:33: WBC 8.8, RBC 3.36 L, Hgb 9.8 L, Hct 31.0 L, MCV 92.3, MCH 29.2, MCHC 31.6 L, RDW Std Deviation 49.7 H, RDW Coeff of Samuel 14.7 H, Plt Count 200, MPV 10.2, Immature Gran % (Auto) 1.500 H, Neut % (Auto) 46.4 L, Lymph % (Auto) 41.3 H, [place] % (Auto) 7.9, Eos % (Auto) 2.2, Baso % (Auto) 0.7, Absolute Neuts (auto) 4.1, Absolute Lymphs (auto) 3.61, Nucleated RBC % 0, Sodium 139, Potassium 5.0, Chloride 104, Carbon Dioxide 27.1, Anion Gap 8, BUN 23 H, C reatinine 1.26 H, Estim Creat Clear Calc 46.25 L, Est GFR (MDRD) Non-Af 62, BUN/Creatinine Ratio 18.3, Glucose 95, Calcium 8.5, Iron 30 L, TIBC 166 L, Iron Saturation 18.0, Unsaturated IBC 136 L, Ferritin 986 H, Total Bilirubin 0.42, AST 20, ALT 16, Alkaline Phosphatase 88, Total Protein 6.3, Albumin 2.9 L, Globulin 3.4, Albumin/Globulin Ratio 0.8 L 10/23/24 15:40: Urine Color Yellow, Urine Clarity Cloudy, Urine pH 6.0, Ur Specific [place] 1.015, Urine Protein 100 H, Urine Glucose (UA) Normal, Urine Ketones 15 H, Urine Occult Blood 250 H, Urine Nitrite Positive H, Urine Bilirubin Negative, Urine Urobilinogen Normal, Ur Leukocyte Esterase 500 H, Urine RBC > 100 SEEN, Urine WBC >100 SEEN, Ur Squamous Epith Cells 0 SEEN, Urine Bacteria 1+, Urine Mucus 0 SEEN Imaging Radiology Impression Thoracic Spine CT 10/23/24 10:41 IMPRESSION: No findings of acute thoracic spine fracture. Right lower lobe nodule. Please see chest CT. One or more dose reduction techniques were used (e.g., Automated exposure control, adjustment of the mA and/or kV according to patient size, use of iterative reconstruction technique). Reading Location: [facility] Brain CT 10/23/24 10:42 IMPRESSION: Global volume loss and chronic small vessel ischemic change. No evidence of acute hemorrhage. Somewhat geographic low attenuation seen in the right parietal lobe for which edema not excluded. If this has not been previously evaluated, consider contrast-enhanced brain MRI to exclude underlying mass lesion. This has not change from most recent examination but does appear to be new from 2022. Reading Location: [facility] Cervical Spine CT 10/23/24 10:42 IMPRESSION: Stable examination. No findings of acute cervical spine fracture. One or more dose reduction techniques were used (e.g., Automated exposure control, adjustment of the mA and/or kV according to patient size, use of iterative reconstruction technique). Reading Location: [facility] Chest CT 10/23/24 11:45 IMPRESSION: No acute traumatic findings. There is however pulmonary nodularity. Malignancy or metastatic disease needs to be excluded. Robust coronary calcification. Mild vascular calcification. Reading Location: [facility] Assessment & Plan Assessment/Plan (1) Acute cystitis with hematuria: (2) Fall at home: QUALIFIERS: Encounter type: initial encounter Qualified Code(s): W19.XXXA - Unspecified fall, initial encounter; Y92.009 - Unspecified place in unspecified non-institutional (private) residence as the place of occurrence of the external cause (3) Metabolic encephalopathy: (4) Metastatic melanoma: (5) Chronic pain syndrome: PLAN: Plan 1. UA gross positive for Acute Cystitis; with hematuria - Admit to general medical floor. Start empiric IV piperacillin-tazobactam and await culture and sensitivity data. Give acetaminophen prn for mild (level 1-3/10) pain or fever. Give tramadol prn for moderate (4-6/10) pain. Give oxycodone prn for severe (7-10/10) pain. 2. Mechanical Fall at home in the setting of chronically poor balance with frequent falls complicating #1 - PT/OT and Case Management to consult and treat on rounds in the AM with help appreciated in advance. 3. Metabolic Encephalopathy due to #1 & #2 - Continue supportive care as outlined above and below and then monitor for improvement. 4. History of metastatic melanoma to brain and lung; on trametinib with previous treatment with gamma knife for the past 2 years without improvement and already followed by hospice at home adding to the medical complexity of #1 - #3 - Noted. Patient to be transfer to hospice facility as soon as possible, hopefully in AM at which time his hospice service should be able to restart caring for him. 5. Essential Hypertension; on amlodipine - Resume amlodipine as previous. 6. History of hypothyroidism; not on treatment - Check TSH. 7. History of depression; on trazodone q. HS - Continue trazodone as before. 8. Generalized anxiety; on as needed lorazepam every 4 hours - Maintain current regimen. 9. Chronic pain syndrome; on tramadol every 6 hours as needed plus oxycodone every 4 hours as needed - Resume current management following pain scale outlined in #1. 10. DVT prophylaxis - Lovenox 40 mg sq daily plus SCD's. Total time: Approximately (but not less than) 75 minutes. Charges/Coding Visit Charges Inpatient E&M: 34365 Init Hosp L3
[2024-10-23 22:14] LABS: Platelet Count 204 K/mm3 (150-450); Reticulocyte Count 1.34 % (0.5-1.5)
--- NOTE | 2024-10-23 22:22 | CM.ED ---
Social Work SW received call back from [facility] stating that [facility] accepted patient under his Medicare benefit and that patients significant other has revoked hospice. SW contacted admissions at [facility] to confirm same, admissions stated they would be able to accept patient under his skilled benefit or hospice. Referral information sent to [facility] per request. Iwona Mccormack, STOCK SPECULATOR, CYBER THREAT ANALYST
--- NOTE | 2024-10-23 22:23 | CM.ED ---
Social Work Hospice was contacted per physician to determine if patient would qualify for Hospice IPU. Hospice came to assess patient, however they do not currently have a bed available. Patient to be admitted to [facility] and discharged to [facility] when medically able. AR Sanchez, UTILITIES ESTIMATOR AND DRAFTER
[2024-10-23 22:51] LABS: Magnesium 2.4 mg/dL (1.5-2.2)
[2024-10-23] MEDS: Piperacil/Tazobactam 3.375 GM in 0.9% Normal Saline (50mL MB+) 50 ML IV (23:31)
[2024-10-23] MEDS: 0.9% Normal Saline (1000mL) 1,000 ML 100 ML IV (23:31)
[2024-10-23] MEDS: traZODone 50 MG Tablet 25 MG PO (23:32)
[2024-10-23] MEDS: traMADol 50 MG Tablet PO (23:32)
[2024-10-23] MEDS: MELATONIN 3 MG TABLET PO (23:32)
[2024-10-24 00:06] VITALS: BMI 19.5
[2024-10-24] MEDS: Piperacil/Tazobactam 3.375 GM in 0.9% Normal Saline (50mL MB+) 50 ML IV ×3 (06:19→21:49)
[2024-10-24 06:32] VITALS: BP 101/67; PULSE 80; RESP 18; TEMP 36.4; O2SAT 94
[2024-10-24 07:09] LABS: Absolute Lymphocyte Count 2.83 X10^3/uL (0.83-4.51); Absolute Neutrophil Count 4.1 X10^3/uL (2.0-7.7); Basophil# 0.05 X10^3/uL; Basophil% 0.6 % (0-1); Eosinophil# 0.23 X10^3/uL; Eosinophils% 2.9 % (0-5); Hematocrit 28.1 % (40-54); Lymphocyte # 2.83 X10^3/ul (0.83-4.51); Lymphocyte % 35.2 % (19-41); Mean Corpuscular Hgb 29.6 pg (27.0-32.0); Mean Corpuscular Volume 92.4 fL (80-94); Monocyte# 0.65 X10^3/uL; Monocyte% 8.1 % (0-10); NRBC Flagged by Analyzer 0 % (0-5); Neutrophil # 4.08 X10^3/uL (2.7-7.7); Neutrophil % 50.8 % (47-70); Platelet Count 188 K/mm3 (150-450); RBC Distribution Width CV 14.8 % (11.6-14.6); RBC Distribution Width SD 49.9 fl (35.1-43.9); Red Blood Count 3.04 M/mm3 (4.6-6.2)
[2024-10-24 08:19] VITALS: BP 95/61; PULSE 78; RESP 16; TEMP 36.8; O2SAT 96
[2024-10-24] MEDS: Ascorbic Acid 500 MG Tablet 1000 MG PO ×2 (08:39→17:42)
[2024-10-24 09:04] LABS: ALB/GLOB Ratio 0.9 RATIO (0.9-2.4); AST(SGOT) 15 U/L (<=37); Alanine Aminotransfer ALT/SGPT 12 U/L (<=46); Albumin, Serum 2.8 g/dL (3.4-4.8); Alkaline Phosphatase 82 U/L (40-129); Anion Gap 9 (5-15); BUN 22 mg/dL (4-19); BUN/Creat Ratio 16.7 RATIO (10-20); Calcium,Total 8.1 mg/dL (7.6-11.0); Carbon Dioxide 23.9 mmol/L (21.0-32.0); Chloride 105 mmol/L (98-108); Creatinine, Serum 1.33 mg/dL (0.70-1.20); EST Glomerular Filtration Rate 58 (>60); Estimated Creatinine Clearance 42.11 ml/min (50-250); Globulin 3.2 g/dL (2.2-4.2); Glucose 113 mg/dL (70-99); Phosphorus 3.3 mg/dL (2.7-4.5); Potassium 4.5 mmol/L (3.3-5.1); Sodium Level 138 mmol/L (133-145); Total Bilirubin 0.26 mg/dL (0.00-1.30)
[2024-10-24] MEDS: Lactobacillis Acidophilus 1 CAP PO ×4 (09:32→21:50)
[2024-10-24] MEDS: Menthol/Lanolin/Calamine/Znox 113 GM Tube 1 APPLIC TOPICAL ×2 (09:32→21:50)
[2024-10-24] MEDS: Zinc Sulfate 50 mg zinc (220 mg) ORAL capsule PO (09:33)
[2024-10-24] MEDS: Cholecalciferol (Vit D3) 125 MCG CAPSULE (5,000 UNITS) PO (09:33)
[2024-10-24] MEDS: Ondansetron 4 MG/2 ML Vial IV (10:57)
[2024-10-24] MEDS: 0.9% Saline Lock 10 ML Syringe IV ×2 (10:57→14:09)
--- NOTE | 2024-10-24 11:36 | CASEMGMT ---
Social Work- SW met with pt to introduce self and role. Pt reports that the plan is to go to [facility] with hospice services. Pt reports I just got here and asked if he would have to discharge today. Pt expressed agreement that Kaitlin is unable to care for him and stated that's why I'm here. Pt reports that he no longer gets up to use the restroom.Pt reports he does want to have hospice services. SW received a call from haley Madrigal SO who reports that she does want pt to discharge with hospice benefits to [facility]. SW completed referral to hospice. SW updated DCA and physician on discharge plans. SW remains available to follow. CLOVIS Pope
[2024-10-24 11:52] VITALS: BP 96/58; PULSE 88; RESP 15; TEMP 36.5; O2SAT 94
--- NOTE | 2024-10-24 11:52 | CASEMGMT ---
Discharge Planning Nicky @ [facility] updated that pt will admit under hospice care. Jeanne Mercer DC Planning Asst.
[2024-10-24 12:24] VITALS: O2SAT 94
--- NOTE | 2024-10-24 12:28 | PCM.PN.HOSP ---
Subjective Subjective No issues overnight, pending discharge on hospice Objective Data Objective Data Vital Signs: Vital Signs Temp Pulse Resp BP Pulse Ox O2 Del Method 97.7 F L 88 15 96/58 L 94 Room Air 10/24/24 11:52 10/24/24 11:52 10/24/24 11:52 10/24/24 11:52 10/24/24 11:52 10/24/24 11:52 Oxygen Delivery Method Room Air Weight: 125 lb 3.561 oz Body Mass Index (BMI) 19.5 Intake & Output: Intake and Output for Last 24 Hours 10/23/24 10/24/24 10/25/24 03:59 03:59 03:59 Intake Total 1250 / 1250 1350 / 1350 Output Total 150 / 150 675 / 675 Balance 1100 / 1100 675 / 675 Lab / Micro Data 10/24/24 06:50 10/24/24 06:50 Labs: Laboratory Results - last 24 hr 10/23/24 15:33: WBC 8.8, RBC 3.36 L, Hgb 9.8 L, Hct 31.0 L, MCV 92.3, MCH 29.2, MCHC 31.6 L, RDW Std Deviation 49.7 H, RDW Coeff of Samuel 14.7 H, Plt Count 200, MPV 10.2, Immature Gran % (Auto) 1.500 H, Neut % (Auto) 46.4 L, Lymph % (Auto) 41.3 H, [place] % (Auto) 7.9, Eos % (Auto) 2.2, Baso % (Auto) 0.7, Absolute Neuts (auto) 4.1, Absolute Lymphs (auto) 3.61, Nucleated RBC % 0, Retic Count 1.34, Immature Retic Fraction 17.20 H, Retic Hgb Equivalent 26.0 L, Sodium 139, Potassium 5.0, Chloride 104, Carbon Dioxide 27.1, Anion Gap 8, BUN 23 H, Creatinine 1.26 H, Estim Creat Clear Calc 46.25 L, Est GFR (MDRD) Non-Af 62, BUN/Creatinine Ratio 18.3, Glucose 95, Calcium 8.5, Magnesium 2.4 H, Iron 30 L, TIBC 166 L, Iron Saturation 18.0, Unsaturated IBC 136 L, Ferritin 986 H, Total Bilirubin 0.42, AST 20, ALT 16, Alkaline Phosphatase 88, Total Protein 6.3, Albumin 2.9 L, Globulin 3.4, Albumin/Globulin Ratio 0.8 L, TSH 2.060 10/23/24 15:40: Urine Color Yellow, Urine Clarity Cloudy, Urine pH 6.0, Ur Specific [place] 1.015, Urine Protein 100 H, Urine Glucose (UA) Normal, Urine Ketones 15 H, Urine Occult Blood 250 H, Urine Nitrite Positive H, Urine Bilirubin Negative, Urine Urobilinogen Normal, Ur Leukocyte Esterase 500 H, Urine RBC > 100 SEEN, Urine WBC >100 SEEN, Ur Squamous Epith Cells 0 SEEN, Urine Bacteria 1+, Urine Mucus 0 SEEN 10/24/24 06:50: WBC 8.0, RBC 3.04 L, Hgb 9.0 L, Hct 28.1 L, MCV 92.4, MCH 29.6, MCHC 32.0, RDW Std Deviation 49.9 H, RDW Coeff of Samuel 14.8 H, Plt Count 188, MPV 10.0, Immature Gran % (Auto) 2.400 H, Neut % (Auto) 50.8, Lymph % (Auto) 35.2, [place] % (Auto) 8.1, Eos % (Auto) 2.9, Baso % (Auto) 0.6, Absolute Neuts (auto) 4.1, Absolute Lymphs (auto) 2.83, Nucleated RBC % 0, Sodium 138, Potassium 4.5, Chloride 105, Carbon Dioxide 23.9, Anion Gap 9, BUN 22 H, Creatinine 1.33 H, Estim Creat Clear Calc 42.11 L, Est GFR (MDRD) Non-Af 58 L, BUN/Creatinine Ratio 16.7, Glucose 113 H, Calcium 8.1, Phosphorus 3.3, Total Bilirubin 0.26, AST 15, ALT 12, Alkaline Phosphatase 82, Total Protein 6.0, Albumin 2.8 L, Globulin 3.2, Albumin/Globulin Ratio 0.9 Radiography Diagnostic Testing: Radiology Impression Thoracic Spine CT 10/23/24 10:41 IMPRESSION: No findings of acute thoracic spine fracture. Right lower lobe nodule. Please see chest CT. One or more dose reduction techniques were used (e.g., Automated exposure control, adjustment of the mA and/or kV according to patient size, use of iterative reconstruction technique). Reading Location: [facility] Cervical Spine CT 10/23/24 10:42 IMPRESSION: Stable examination. No findings of acute cervical spine fracture. One or more dose reduction techniques were used (e.g., Automated exposure control, adjustment of the mA and/or kV according to patient size, use of iterative reconstruction technique). Reading Location: [facility] Chest CT 10/23/24 11:45 IMPRESSION: No acute traumatic findings. There is however pulmonary nodularity. Malignancy or metastatic disease needs to be excluded. Robust coronary calcification. Mild vascular calcification. Reading Location: [facility] Physical Exam Narrative General: Alert but sleepy, disoriented at times, Cooperative, No apparent distress HEENT: Atraumatic, PERRLA, EOMI, Normocephalic Oral: Moist Mucosa Neck: Supple, No JVD Lungs: Diminished, Normal air movement, No rhonchi, No wheeze, No rales Cardiovascular: Regular rate, Regular Rhythm, Normal S1, Normal S2, No murmurs Abdomen: Soft, Non Tender, Non-Distended, No Hepato-splenomegaly Extremities: No edema, Capillary Refill Less than 3 Seconds Skin: No rashes, No breakdown Musculoskeletal: No Tenderness to Palpation of Joints or Extremities Neurological: No focal neurological deficits, Motor Exam 5/5 strength throughout, Sensory exam intact to light touch and pain Psych/Mental Status: Flat Assessment & Plan Assessment/Plan (1) Acute cystitis with hematuria: (2) Metabolic encephalopathy: (3) Metastatic melanoma: (4) Chronic pain syndrome: PLAN: Plan 1. Metabolic encephalopathy secondary to a UTI in the setting of metastatic melanoma to the brain and lung experimental chemotherapy ? There was some confusion about the role of hospice, that his sister apparently revoked hospice and therefore he was admitted ? His is POA therefore will only discuss care with her and she is elected to proceed with hospice at [facility] ? In the meantime we will continue with antibiotics and can transition to p.o. antibiotics on discharge ? Urine cultures pending ? Will continue with pain management 2. Essential HTN ? On his previous admission he did have A-fib however he was transferred to [facility] and it was likely discontinued his metoprolol ? Will monitor and make adjustments as necessary DVT: Lovenox Charges/Coding Visit Charges Inpatient E&M: 33747 Subs Hosp L2
--- NOTE | 2024-10-24 14:36 | CASEMGMT ---
Social Work- SW confirmed that hospice received referral. Meeting for resumption of services is set for 4:30-5:00 PM. Physician updated. DCA updated. Plan: [facility] with hospice services CLOVIS Pope
--- NOTE | 2024-10-24 15:26 | CHAPLAIN ---
Type of Pastoral Visit __x Initial Visit ___ Follow-up Visit ___ On-call Visit ___ General Patient Visit ___ Spiritual Assessment ___ Family Conference ___ Bereavement ___ Rapid Response ___ Code Blue ___ Other (describe below) Pastoral Care Referral From _x__ Patient ___ Family ___ Nurse ___ Physician ___ School Librarian ___ Informatics Educator ___ Other (describe below) Sacrament/Intervention _x__ Active listening ___ Anointing ___ Judaism ___ Bereavement ___ Communion ___ Dinora exploration ___ ___ Life review _x__ Prayer ___ Reconciliation ___ Sacrament of Sick _x__ Supportive presence ___ Wedding ___ Other (describe below) Pastoral Comments patient is welcoming and talks about his woman who left me here and how she doesn't do what I want her to do...; pt thought he was in hospice and not hospital; reoriented patient to whereabouts; pt acknowledges that I like it here where it is quiet and people are nice; pt does answer questions and engages in conversation but it is not certain of the truth of his story; pt welcomes prayer support
[2024-10-24 16:01] VITALS: BP 110/60; PULSE 73; RESP 13; TEMP 36.9; O2SAT 96
[2024-10-24 21:48] VITALS: BP 115/63; PULSE 74; RESP 18; TEMP 36.6; O2SAT 95
[2024-10-24] MEDS: traZODone 50 MG Tablet 25 MG PO (21:51)
[2024-10-24] MEDS: traMADol 50 MG Tablet PO (21:53)
[2024-10-25 04:30] VITALS: BP 111/62; PULSE 82; RESP 16; TEMP 37.2; O2SAT 94
[2024-10-25] MEDS: Piperacil/Tazobactam 3.375 GM in 0.9% Normal Saline (50mL MB+) 50 ML IV (05:07)
[2024-10-25] MEDS: 0.9% Normal Saline (100mL Bag) 100 ML 15 ML IV (05:07)
[2024-10-25 05:45] VITALS: BMI 19.8
[2024-10-25 07:40] VITALS: BP 107/70; PULSE 80; RESP 18; TEMP 36.9; O2SAT 95
[2024-10-25] MEDS: Menthol/Lanolin/Calamine/Znox 113 GM Tube 1 APPLIC TOPICAL (07:44)
[2024-10-25] MEDS: Cholecalciferol (Vit D3) 125 MCG CAPSULE (5,000 UNITS) PO (07:44)
[2024-10-25] MEDS: Lactobacillis Acidophilus 1 CAP PO (07:44)
[2024-10-25] MEDS: amLODIPine 5 MG Tablet PO (07:44)
[2024-10-25] MEDS: Zinc Sulfate 50 mg zinc (220 mg) ORAL capsule PO (07:44)
[2024-10-25] MEDS: Ascorbic Acid 500 MG Tablet 1000 MG PO (07:44)
--- NOTE | 2024-10-25 07:54 | PCM.TXEXTCAR ---
Diet Diet Order/Speech Therapy: 10/23/24 22:39 Diet: Regular - General Food consistency:: Regular Liquid Consistency:: Regular/Thin Routine Orders/Code Status Code Status: DNRCC DC O2, CPAP, BIPAP needs Home O2 Discharge instructions: No Wound(s) bilat buttocks: Wound Type: Pressure Injury Problem/Diagnosis (1) Acute cystitis with hematuria: Status: Acute Code(s): N30.01 - Acute cystitis with hematuria (2) Metabolic encephalopathy: Status: Acute Code(s): G93.41 - Metabolic encephalopathy (3) Metastatic melanoma: Status: Acute Code(s): C43.9 - Malignant melanoma of skin, unspecified (4) Chronic pain syndrome: Status: Chronic Code(s): G89.4 - Chronic pain syndrome Plan 1. Metabolic encephalopathy secondary to a UTI in the setting of metastatic melanoma to the brain and lung experimental chemotherapy ? There was some confusion about the role of hospice, that his sister apparently revoked hospice and therefore he was admitted ? His is POA therefore will only discuss care with her and she is elected to proceed with hospice at [facility] ? In the meantime we will continue with antibiotics and can transition to p.o. antibiotics on discharge ? Urine cultures pending ? Will continue with pain management 2. Essential HTN ? On his previous admission he did have A-fib however he was transferred to [facility] and it was likely discontinued his metoprolol ? Will monitor and make adjustments as necessary DVT: Lovenox Allergies/Procedures Done in Hospital Allergies No Known Allergies Allergy (Verified 09/26/24 05:30) Type of Care/Length of Stay Estimated LOS: Convalescent Care Less Than 30 days Type of Care Needed: In Hospice Facility Rehab Potential: Poor Prognosis: Poor Additional Orders/Day of Discharge Day of Discharge: 10/25/24 Dietary and Speech Recommendations Dietitian Recommendations/Changes: Continue regular diet to optimize oral intakes. Discharge Plan Admission Admit Date/Time: 10/23/24 22:11 Attending Provider: Bossman Chambers Primary Care Provider: Samira Akers NP Consulting Providers: Seamus Harp; Seamus Zuniga; Leona Jarrell; Raven Lindquist; Hannah Burger; Flori Armstrong CHIEF LENDING OFFICER; Nereyda Herrera Discharge Orders/Prescriptions Prescriptions: New ciprofloxacin HCl [Cipro] 500 mg tablet 500 mg PO BID Qty: 10 0RF Continued tramadol 50 MG tablet 50 mg PO Q6H PRN (Reason: pain) 3 Days Qty: 12 0RF amlodipine 5 mg tablet 5 mg PO DAILY Mekinist 0.5 mg tablet 2 mg PO DAILY Rx Instructions: must be taken on empty stomach, at least 1 hr before or 2-3 hrs after meal/food lorazepam 0.5 mg tablet 0.5 mg PO Q4H PRN PRN (Reason: anxiety) oxycodone 5 mg tablet 2.5 mg PO Q4H PRN PRN (Reason: pain) trazodone 50 mg tablet 25 mg PO QHS Discontinued ciprofloxacin HCl [Cipro] 500 mg tablet 500 mg PO BID 7 Days Qty: 14 0RF Referrals / Follow Up: Samira Akers NP, CHIEF LENDING OFFICER-C [Primary Care Provider] - Disposition Disposition (needs filled in before D/C Order can be placed): Hospice in Medical Facility
[2024-10-25 08:20] LABS: Phosphorus 3.5 mg/dL (2.7-4.5)
--- NOTE | 2024-10-25 09:33 | EX.PCM.SENPN ---
Objective Data Objective Data See MD orders: frequency 3 times per week for 36 sessions. For 5 weeeks Exercise workloads will be progressed gradually within limits of patient's ability.[id number] k Progression based on JANIS dyspnea of 3-5 and absence of untoward symptoms during exercise. [id number] flb Vital Signs: Vital Signs Temp Pulse Resp BP Pulse Ox O2 Del Method 98.5 F 80 18 107/70 95 Room Air 10/25/24 07:40 10/25/24 07:40 10/25/24 07:40 10/25/24 07:40 10/25/24 07:40 10/25/24 09:08 Oxygen Delivery Method Room Air Weight: 57.1 kg Body Mass Index (BMI) 19.8 Intake & Output: Intake and Output for Last 24 Hours 10/23/24 10/24/24 10/25/24 23:59 23:59 23:59 Intake Total 1200 / 1200 1450 / 1450 300.25 / 300.25 Output Total 1000 / 1175 175 / 175 Balance 1200 / 1050 450 / 275 125.25 / 125.25 Lab / Micro Data 10/24/24 06:50 10/24/24 06:50 Labs: Laboratory Results - last 24 hr 10/25/24 05:51: Phosphorus 3.5 Micro: Microbiology 10/23/24 15:40 Urine, Clean Catch Urine Culture - Preliminary GNR Poss Pseudomonas sp
--- NOTE | 2024-10-25 09:57 | CASEMGMT ---
Social Work- Physician feels that pt is medically ready to discharge. PASRR completed. SW called pt SO, Kaitlin, to verify that she met with hospice to complete paperwork to re-sign pt to hospice services. Kaitlin reports that paperwork has been completed. Hospice worker meeting with pt this morning and will complete admit once pt is at [facility]. DCA advised of pt discharge. Final arrangements for discharge and notifications to family to be completed by DCA. Plan: [facility] with hospice services CLOVIS Pope
--- NOTE | 2024-10-25 10:43 | CASEMGMT ---
Discharge Planning Discharge orders, signed med list, and transport time sent to [facility]. Call also placed. Physicians will transport pt by wheelchair at 12:30p. Nursing, SW, pt, and his SO (Kaitlin) updated. Jeanne Mercer DC Planning Asst.
[2024-10-25 11:40] VITALS: BP 105/66; PULSE 80; RESP 16; TEMP 36.9; O2SAT 97
--- NOTE | 2024-10-25 12:23 | PCM.DC.SUM ---
Providers Date of Admission: 10/23/24 Primary Care Physician: TAWNYA Sotelo Consultations 10/24/24 12:42 Consult: Hospice / Palliative Care Routine Consulting Provider: [facility] Reason for Consult: return to hospice care EMERGENT Consult: No MD Notified: Yes Date Notified: 10/24/24 Time Notified: 12:43 Method of Notification: Text Reason For Visit: ACUTE CYSTITIS W/HEMATURIA MECHANICAL FALL Diagnosis Discharge Diagnosis (1) Acute cystitis with hematuria: Status: Acute Code(s): N30.01 - Acute cystitis with hematuria (2) Metabolic encephalopathy: Status: Acute Code(s): G93.41 - Metabolic encephalopathy (3) Metastatic melanoma: Status: Acute Code(s): C43.9 - Malignant melanoma of skin, unspecified (4) Chronic pain syndrome: Status: Chronic Code(s): G89.4 - Chronic pain syndrome Medications at Discharge Home Medications tramadol 50 mg tablet 50 mg PO Q6H PRN pain 3 days #12 tabs 09/17/22 amlodipine 5 mg tablet 5 mg PO DAILY bp 09/22/24 trametinib 0.5 mg tablet (Mekinist) 2 mg PO DAILY 09/22/24 lorazepam 0.5 mg tablet 0.5 mg PO Q4H PRN PRN anxiety 10/23/24 oxycodone 5 mg tablet 2.5 mg PO Q4H PRN PRN pain 10/23/24 trazodone 50 mg tablet 25 mg PO QHS insomnia 10/23/24 ciprofloxacin HCl 500 mg tablet (Cipro) 500 mg PO BID #10 tabs 10/25/24 Hospital Course Operations None Procedures None Summary of Care Provided Minutes Spent on Discharge: 34 Hospital Course: Per HPI: IDALIA BACA, is a 69 M with a past medical history of essential hypertension; on amlodipine, history of hypothyroidism; not on treatment, history of depression; on trazodone q. 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 ER complaining of fall. Mr. Baca is not a fully-reliable historian at this time so information was gathered from chart, medical staff and computer. According to the records he has frequent falls attributed to loss of balance in the past and earlier today he lost his balance in his bedroom and fell onto the carpet. There was no report of loss of consciousness or significant head injury. The patient's girlfriend and helped him off the floor and then activated EMS. Mr. Baca complained of neck pain and thoracic back pain and his family and caregivers stated to the ER physician they were unable to care for him at home. Hospice personnel was called to evaluate patient and they are recommending patient be admitted to the hospital and discharged to hospice facility in a.m. when they take patient's and then they will resume care at that time. There is no report of fever, chills, nausea, vomiting, abdominal pain, chest pain, shortness of breath or headache. In the ER he was noted to have a UA gross positive for Acute Cystitis; with hematuria complicated by clinical evidence of Metabolic Encephalopathy after recent Mechanical Fall with CT scans of cervical spine and thoracic spine negative for acute pathologic findings in the setting of known metastatic melanoma with grave prognosis already on hospice. He was then admitted to the general medical floor for ongoing care for stay that is expected to extend beyond 2 midnights. Hospital Course: 1. Metabolic encephalopathy secondary to a Pseudomonas UTI in the setting of metastatic melanoma to the brain and lung experimental chemotherapy ? There was some confusion about the role of hospice, that his sister apparently revoked hospice and therefore he was admitted ? His is POA therefore will only discuss care with her and she is elected to proceed with hospice at [facility] ? In the meantime we will continue with antibiotics and can transition to p.o. antibiotics on discharge ? Urine cultures pending ? Will continue with pain management 10/25/2024: He is still confused, he knows that he is in [place] but has no idea where in [place] but he does know that it is . Initially he was discharged on Cipro however prior to him exiting the building his sensitivities came back for Pseudomonas UTI, it does appear that he might be a little bit colonized as his previous UTIs in our system are showing Pseudomonas as well. What is obvious that he is resistant to Cipro but it is sensitive to Levaquin so we will transition his antibiotics from the Cipro he was discharged on to Levaquin 750 mg p.o. every 48 hours secondary to his creatinine clearance being less than 60 and to continue this for 5 more doses. Will resume his home medications and allow hospice to make any changes as they see fit. 2. Essential HTN ? On his previous admission he did have A-fib however he was transferred to [facility] and it was likely discontinued his metoprolol ? Will monitor and make adjustments as necessary Physical Exam Narrative General: Alert but sleepy, oriented x 1, Cooperative, No apparent distress HEENT: Atraumatic, PERRLA, EOMI, Normocephalic Oral: Moist Mucosa Neck: Supple, No JVD Lungs: Diminished, Normal air movement, No rhonchi, No wheeze, No rales Cardiovascular: Regular rate, Regular Rhythm, Normal S1, Normal S2, No murmurs Abdomen: Soft, Non Tender, Non-Distended, No Hepato-splenomegaly Extremities: No edema, Capillary Refill Less than 3 Seconds Skin: No rashes, No breakdown Musculoskeletal: No Tenderness to Palpation of Joints or Extremities Neurological: No focal neurological deficits, Motor Exam 5/5 strength throughout, Sensory exam intact to light touch and pain Psych/Mental Status: Normal affect Weight / BMI Weight Weight: 125 lb 14.143 oz Body Mass Index (BMI) 19.8 ABG / Lab / Microbiology Data 10/24/24 06:50 10/24/24 06:50 Laboratory: Laboratory Results - last 24 hr 10/25/24 05:51: Phosphorus 3.5 Microbiology: Microbiology 10/23/24 15:40 Urine, Clean Catch Urine Culture - Final Pseudomonas aeruginosa D/C Instructions DC O2, CPAP, BIPAP Needs Home O2 Discharge instructions: No Meaningful Use Info Meaningful Use Meaningful Use Diagnoses (Choose all that apply): None applicable Ischemic Stroke Statin Dosing Therapy Reference: STATIN DOSE THERAPY REFERENCE: * Patients > 75 years receive moderate or high dose statin therapy. * Patients 75 years or YOUNGER should receive HIGH intensity statin dose unless contraindicated. You will be required to document reason for non-treatment if statin daily dose does not meet guidelines. HIGH DOSE STATIN THERAPY DAILY Atorvastatin > than or = to 40 mg Rosuvastatin > than or = to 20 mg Amlodipine + Atorvastatin > than or = to 2.5/40 mg Ezetimibe + Simvastatin 10/80 mg Simvastatin 80mg Discharge Plan Admission Admit Date/Time: 10/23/24 22:11 Attending Provider: Bossman Chambers Primary Care Provider: Samira Akers NP Consulting Providers: Idalia Harp; Idalia Zuniga; Leona Jarrell; Raven Lindquist; Hannah Burger; Flori Armstrong ULTRASOUND APPLICATIONS SPECIALIST; Nereyda Herrera Discharge Orders/Prescriptions Prescriptions: New ciprofloxacin HCl [Cipro] 500 mg tablet 500 mg PO BID Qty: 10 0RF Continued tramadol 50 MG tablet 50 mg PO Q6H PRN (Reason: pain) 3 Days Qty: 12 0RF amlodipine 5 mg tablet 5 mg PO DAILY Mekinist 0.5 mg tablet 2 mg PO DAILY Rx Instructions: must be taken on empty stomach, at least 1 hr before or 2-3 hrs after meal/food lorazepam 0.5 mg tablet 0.5 mg PO Q4H PRN PRN (Reason: anxiety) oxycodone 5 mg tablet 2.5 mg PO Q4H PRN PRN (Reason: pain) trazodone 50 mg tablet 25 mg PO QHS Discontinued ciprofloxacin HCl [Cipro] 500 mg tablet 500 mg PO BID 7 Days Qty: 14 0RF Referrals / Follow Up: Samira Akers NP, ULTRASOUND APPLICATIONS SPECIALIST-C [Primary Care Provider] - Disposition Disposition (needs filled in before D/C Order can be placed): Hospice in Medical Facility Charges/Coding Visit Charges Inpatient E&M: 93549 Disch Hosp >30min
== END 2024-10-25 13:49 | disposition hospice, inpatient (51) | DRG 689 ==
LOC: ED 16:57 → MS3 22:05
PROVIDERS: Internal Medicine; Admitting Provider Internal Medicine; Emergency Provider Surgery; PCP Clinical Nurse Specialist; Visit Provider Family Medicine
DX: N30.01 Acute cystitis with hematuria (principal); G93.41 Metabolic encephalopathy; C78.00 Secondary malignant neoplasm of unspecified lung; C79.31 Secondary malignant neoplasm of brain; Z16.23 Resistance to quinolones and fluoroquinolones; L89.319 Pressure ulcer of right buttock, unspecified stage; D64.9 Anemia, unspecified; C43.9 Malignant melanoma of skin, unspecified; B96.5 Pseudomonas (aeruginosa) (mallei) (pseudomallei) as the cause of diseases classified elsewhere; F32.A Depression, unspecified; I10 Essential (primary) hypertension; S10.93XA Contusion of unspecified part of neck, initial encounter; I45.10 Unspecified right bundle-branch block; S20.229A Contusion of unspecified back wall of thorax, initial encounter; W19.XXXA Unspecified fall, initial encounter; L89.329 Pressure ulcer of left buttock, unspecified stage; Z66 Do not resuscitate; F41.1 Generalized anxiety disorder; Y92.009 Unspecified place in unspecified non-institutional (private) residence as the place of occurrence of the external cause; G89.4 Chronic pain syndrome; N28.9 Disorder of kidney and ureter, unspecified; R26.81 Unsteadiness on feet; Z79.899 Other long term (current) drug therapy; Z91.81 History of falling; Z86.39 Personal history of other endocrine, nutritional and metabolic disease
CPT/HCPCS: 36415; 70450; 71250; 72125; 72128; 80053; 81001; 82728; 83540; 83550; 83735; 84100; 84443; 85025; 85045; 87040; 87086; 87088; 87184; 87186; 93005; 97162; 97166; 99285; A4216; J2405